=== PATIENT | female | born 1940 | race Two or more races ===

== ENCOUNTER 2024-08-31 14:15 | Inpatient (IN) | payer MEDICARE, MEDICAID, SELFPAY ==
[2024-08-31] VITALS (8 sets, daily range): BP systolic 105–180; BP diastolic 53–82; PULSE 91–109; RESP 16–20; TEMP 36.1–37.6; O2SAT 96–100
--- NOTE | 2024-08-31 15:00 | XR_ITS ---
Examination: CT abdomen with intravenous contrast CT pelvis with intravenous contrast 2-D coronal reconstructions 2-D sagittal reconstructions Date and time of exam:August 31, 2024 1802 hours INDICATIONS: Onset abdominal pain today. CTDI: vol (mGy) 5.72 DLP: (mGycm) 3001 Technique: Multiple axial sections of the abdomen and pelvis have been obtained. 64 slice high-resolution scanner used. 3 mm axial sections have been obtained, post intravenous injection 60 cc [id number] 2-D sagittal, coronal reconstructions obtained. Low dose protocols were performed. One or more of the following dose reduction techniques were used; automated exposure control, adjustment of the mA and/or KV according to patient size, use of iterative reconstruction technique. Findings: Liver irregular in contour, 14 mm posterior right lobe liver lesion 12 mm medial right lobe liver lesion Spleen is not enlarged Cholelithiasis Gastric mucosa axial image 92, in the antrum is thickened Common bile duct is enlarged 8 mm Pancreatic duct is mildly enlarged 3 mm No pancreatic mass Heavy abdominal aortic calcification Pericecal inflammatory change Fluid-filled inflamed appendix retrocecal, sagittal images 148 through 128 with small appendicolith No pericecal abscess Small bowel ileus Atrophic uterus No adnexal mass Bladder intact Severe osteopenia IMPRESSION: Primary hepatocellular disease, focal liver lesions, recommend MRI abdomen liver follow up pre and postcontrast to exclude hepatic metastases Antral gastritis Cholelithiasis, enlarged common bile duct 8 mm, recommend hepatobiliary sonography follow-up Acute appendicitis, appendix retrocecal with pericecal inflammatory change but no pelvic abscess
--- NOTE | 2024-08-31 15:01 | PD.EDRME ---
Rapid Medical Screening Exam RME Arrival date/time: 08/31/24 14:15 84-year-old female presents to the emergency department today for complaints of abdominal pain Chief Complaint: Abdominal Pain Vital signs: Vital Signs Temperature 99.7 F 08/31/24 14:41 Pulse Rate 109 H 08/31/24 14:41 Respiratory Rate 18 08/31/24 14:41 Blood Pressure 105/53 L 08/31/24 14:41 Pulse Oximetry (%) 96 08/31/24 14:41 Oxygen Delivery Method Room Air 08/31/24 14:41
[2024-08-31] MEDS: ONDANSETRON ODT 4 MG TABRAP PO (15:04)
[2024-08-31 15:40] LABS: Basophils # (Auto) 0.0 Thou/mm3 (0.0-0.2); Basophils % (Auto) 0 % (0-2.5); Eosinophils # (Auto) 0.0 Thou/mm3 (0.0-0.5); Eosinophils % (Auto) 0 % (0-10); Hematocrit 36.2 % (36.0-46.0); Hemoglobin 12.6 g/dL (12.0-16.0); Immature Granulocytes Auto 0.03 Thou/mm3 (0.00-0.00); Lymphocytes # (Auto) 0.6 Thou/mm3 (1.0-4.8); Lymphocytes % (Auto) 7 % (10-50); Mean Corpuscular HGB Conc 34.8 g/dl (31.0-37.0); Mean Corpuscular Hemoglobin 28.9 pg (25.0-35.0); Mean Corpuscular Volume 83 fL (80-100); Monocytes # (Auto) 0.6 Thou/mm3 (0.0-0.8); Monocytes % (Auto) 7 % (0-12); Neutrophils # (Auto) 7.6 Thou/mm3 (1.8-7.7); Neutrophils % (Auto) 86 % (37-80); Nucleated Red Blood Cell # 0.00 Thou/mm3 (0.00-0.00); Nucleated Red Blood Cell % 0 /100 WBC (0); Platelet Count 244 Thou/mm3 (140-440); RDW Standard Deviation 42.4 fL (36.4-46.3); Red Blood Count 4.36 Miln/mm3 (4.00-5.20); White Blood Count 8.8 Thou/mm3 (3.6-11.0)
[2024-08-31 16:26] LABS: Alanine Aminotransferase 9 U/L (10-49); Albumin, Serum 4.5 gm/dL (3.4-4.8); Albumin/Globulin Ratio 1.7 (1.2-2.2); Alkaline Phosphatase 64 U/L (46-116); Anion Gap 16 (7-16); Aspartate Amino Transferase 14 U/L (0-34); BUN/Creatinine Ratio 24 Ratio (12-20); Bilirubin,Total 1.4 mg/dL (0.3-1.2); Blood Urea Nitrogen 24 mg/dL (9-23); Calcium 9.8 mg/dL (8.3-10.6); Calcium (Corrected) 9.8 mg/dL (8.5-10.1); Carbon Dioxide 22.9 mMol/L (20.0-31.0); Chloride 96 mMol/L (98-107); Creatinine (Component) 1.0 mg/dL (0.6-1.3); Globulin 2.7 gm/dL (2.3-3.5); Glucose 288 mg/dL (74-106); Lipase 27 U/L (12-53); Osmolality,Calculated 285 (275-295); Potassium 4.0 mMol/L (3.4-5.1); Sodium 135 mMol/L (136-145); Total Protein 7.2 gm/dL (5.7-8.2); eGFR 55 See Note
[2024-08-31 19:31] LABS: Band Neutrophils (Manual) 14 % (0-6); Lymphocytes (Manual) 11 % (20-44); Monocytes (Manual) 6 % (2-9); Neutrophils (Manual) 69 % (50-70)
[2024-08-31 19:32] LABS: Burr Cells Few; Tear Drop Cells Few
[2024-08-31 19:58] LABS: Collection Type, Urine Clean Catch
[2024-08-31 20:03] LABS: Bilirubin,Urine Negative (Negative); Blood,Urine 1+ (Negative); Clarity,Urine Clear (Clear/Hazy); Color,Urine Yellow (Lt Yel-Yel); Culture Indicated,Urine Not Indicated; Glucose, Urine Negative (Negative); Hyaline Casts,Urine < 1 /hpf (0-1); Ketones,Urine Trace (Negative); Leukocyte Esterase,Urine Negative (Negative); Nitrite,Urine Negative (Negative); PH,Urine 6.5 (5.0-7.0); Protein,Urine 1+ (Neg - Trace); RBC,Urine 18 /hpf (0-3); Specific Gravity,Urine 1.034 (1.001-1.035); Squamous Epithelial Cell,Urine < 1 /hpf (0-5); Urobilinogen,Urine Negative mg/dL (0.0-1.0); WBC,Urine 3 /hpf (0-5)
--- NOTE | 2024-08-31 20:53 | PD.EDABDPN ---
ED Abdominal Pain RME/HPI General Chief Complaint: Abdominal Pain Stated complaint: SEVERE RLQ ABD PAIN. STARTED 2 HRS AGO Time seen by provider: 08/31/24 19:37 Arrival date/time: 08/31/24 14:15 Source: patient and family Limitations: language barrier and other (Dementia) RME / HPI RME / HPI narrative: At the time of my exam, the history is hard to obtain. Patient was not able to answer any questions and was in the ER alone. Her abdomen is tender. She has no masses or guarding. Family members were called and they were return to the ER. A male arrived and states that this is her mother and that she lives with him. He states that she has had right lower quadrant pain since 2 PM today. She has had 2-3 episodes of nausea and vomiting. No diarrhea. She has a history of dementia, diabetes, and hypertension. She is allergic to penicillin. Related Data Home Medications ?Medication ?Instructions ?Recorded ?Confirmed amlodipine 08/31/24 aspirin 81 mg tablet,delayed 81 mg PO QDAY 08/31/24 08/31/24 release (Enteric Coated Aspirin) losartan 08/31/24 metformin 850 mg tablet 850 mg PO QDAY 08/31/24 08/31/24 Allergies Allergy/AdvReac Type Severity Reaction Status Date / Time Penicillins Allergy Verified 08/31/24 21:27 Review of Systems Review of Systems Systems Reviewed: All systems reviewed, normal except as documented ED Exam General Limitations: Present language barrier and other (Dementia) General appearance: Present alert and in distress Head Head exam: Present atraumatic Eye Eye exam: Present normal appearance, PERRL and EOMI ENT ENT exam: Present normal exam, normal oropharynx and mucous membranes moist Neck Neck exam: Present normal inspection, full ROM and trachea midline Chest Chest inspection: Present normal inspection and symmetric chest wall rise Respiratory Respiratory exam: Present normal lung sounds bilaterally Cardiovascular Cardiovascular exam: Present regular rate, normal rhythm and normal heart sounds Abdominal Exam Abdominal exam: Present soft, tenderness and normal bowel sounds; Absent rebound or rigidity Extremities Exam Extremities exam: Present normal inspection and full ROM Back Exam Back exam: Present normal inspection and full ROM Neurological Exam Neurological exam: Present alert, oriented X3 and CN II-XII intact Psychiatric Psychiatric exam: Present normal affect and normal mood Skin Skin exam: Present warm, dry, intact and normal color Course Course Course Narrative: Dr Castro aldana and the case was discussed. Will admit to medicine and he will follow in the morning. Quality Measures none Orders Category Date Time Status COVID-19 Screening Questionnaire NOW Care 08/31/24 21:[address] Screening NOW Care 08/31/24 15:00 Active Consent [Obtain Written Consent For:] .NOW Care 08/31/24 21:34 Completed Decision to Admit X1 Care 08/31/24 21:01 Completed EKG (ED ONLY) *Do not use* NOW Care 08/31/24 21:08 Completed Weeks [Urinary Catheter] QS Care 08/31/24 19:40 Active Insert IV NOW Care 08/31/24 15:[address] abdomen pelvis w con Stat Exams 08/31/24 15:00 Completed EKG (ED Only) Stat Exams 08/31/24 21:08 Draft XR chest 1V portable Stat Exams 08/31/24 21:12 Completed CBC Stat Lab 08/31/24 15:22 Completed Comprehensive Metabolic Panel Stat Lab 08/31/24 15:22 Completed Lactic Acid [Lactate (Lactic Acid)] Stat Lab 08/31/24 20:43 Results Lipase Stat Lab 08/31/24 15:22 Completed Partial Thromboplastin Time Stat Lab 08/31/24 15:22 Completed Procalcitonin Stat Lab 08/31/24 20:43 Completed UA, C/S IF [Urinalysis, C/S if Indicated] Stat Lab 08/31/24 19:40 Completed Bupivacaine Mpf 0.5% [Sensorcaine-Mpf Inj 0.5%] Med 08/31/24 21:36 Discontinued 30 ml .ROUTE .STK-MED ONE CIPROFLOXACIN/D5w 400 MG IVPB [Cipro Ivpb] Med 08/31/24 20:57 Discontinued 400 mg in 200 ml IV X1 Ondansetron Odt [Zofran Odt] Med 08/31/24 15:00 Discontinued 4 mg PO X1 ONE Propofol Inj [Diprivan Inj] Med 08/31/24 21:21 Discontinued 200 mg IV .STK-MED ONE Sugammadex Inj [Bridion Inj] Med 08/31/24 21:22 Discontinued 200 mg .ROUTE .STK-MED ONE fentaNYL INJ [Sublimaze Inj] Med 08/31/24 21:21 Discontinued 100 mcg .ROUTE .STK-MED ONE metroNIDAZOLE/NS 500 MG IVPB [Flagyl 500 mg IV] Med 08/31/24 20:57 Discontinued 500 mg in 100 ml IV Q8HR Vital Signs Vital signs: Vital Signs Temperature 99.7 F 08/31/24 14:41 Pulse Rate 109 H 08/31/24 14:41 Respiratory Rate 18 08/31/24 14:41 Blood Pressure 105/53 L 08/31/24 14:41 Pulse Oximetry (%) 96 08/31/24 14:41 Oxygen Delivery Method Room Air 08/31/24 14:41 Abdominal Pain MDM MDM Narrative MDM Narrative:: Patient is a 84-year-old female who was alone at the time of my initial encounter with her. She had a diffuse abdomen tenderness. Reviewed CT findings with attending ER physician, Dr. CONCEPCION. There is concerns for acute appendicitis. Gallstones were also noted. Dr. Erazo was paged and consulted, he stated he would like the patient admitted to the hospital and he will see her tomorrow morning. Case discussed with our nightshift hospitalist, hospitalist will like ultrasound performed prior to considering admission. Ultrasound was ordered. After this, nursing staff for me that the patient was being prepped for the OR. Patient data External records reviewed:: None Clinical information provided by:: patient and family Social determinants that could affect healthcare access:: mental health Patient has the following chronic illnesses:: Dementia, hypertension, diabetes How is presenting disease/condition affected by chronic disease/condition?: uneffected by Evaluation data The following diagnostics were reviewed and interpreted by me:: lab results and radiology exam(s) Lab and/or radiology exams considered but not ordered:: Patient has no leukocytosis, H&H are stable. Glucose is 288 her AST is 14, ALT is 9 alk phos 64. total bili is 1.4 Lipase 27. Lactic acid 6.3. UA shows 18 erythrocytes, no significant leukocytes. Interpretation Summary: Findings concerning for acute appendicitis. Medications / Prescriptions Medications or Prescriptions considered but not ordered:: n/a Medication administrations:: Medication Administration History Acetaminophen (Acetaminophen 325 Mg Tablet) 650 mg PO Q6H PRN PRN Reason: Fever >100.4 Stop: 09/30/24 21:45 Hydrocodone Bitart/Acetaminophen (Hydrocodone/Apap 5/325 Tablet) 1 tab PO Q4HR PRN PRN Reason: PAIN SCALE 4-6 (Moderate Stop: 09/05/24 21:45 Dextrose (Dextrose 50%-Water Inj 50 Ml Syringe) 25 ml IV Q15MIN PRN PRN Reason: BG 50-70 responsive npo pt Stop: 09/30/24 21:45 Dextrose (Dextrose 50%-Water Inj 50 Ml Syringe) 50 ml IV Q15MIN PRN PRN Reason: BG <50 OR BG <70 & pt unresponsive Stop: 09/30/24 21:45 Fentanyl Citrate (Fentanyl Cit Inj 50 Mcg/Ml Amp 2ml) 25 mcg IVP Q5M PRN PRN Reason: PAIN SCALE 1-3 (mild Stop: 08/31/24 23:47 Glucagon (Glucagon Inj 1 Mg Vial) 1 mg IM Q15MIN PRN PRN Reason: BG <70, and no IV access Hydromorphone HCl (Hydromorphone Inj 2 Mg/Ml Vial) 0.2 mg IVP Q5M PRN PRN Reason: PAIN 1-6 (mild-mod Stop: 08/31/24 23:47 Piperacillin Sod/Tazobactam (Sod 4.5 gm/ Sodium Chloride) 100 mls @ 200 mls/hr IV Q8HR ANDREINA Stop: 09/07/24 21:59 Sodium Chloride (Ns) 1,000 mls @ 75 mls/hr IV .[id number] [facility] Stop: 09/01/24 12:04 Insulin Human Lispro (Insulin Lispro (Admelog) 1 Unit/0.01 Ml Unit) 0 unit SC Q6HR ANDREINA; Protocol Stop: 10/01/24 00:00 Morphine Sulfate (Morphine Sulf Inj 10 Mg/Ml Vial) 3 mg IVP Q5M PRN PRN Reason: PAIN SCALE 4-6 (Moderate Stop: 08/31/24 23:47 Ondansetron HCl (Ondansetron Inj 2 Mg/Ml Inj 2 Ml) 4 mg IVP Q6H PRN; Protocol PRN Reason: NAUSEA OR VOMITING Stop: 09/30/24 21:45 Discontinued Medications Bupivacaine HCl (Bupivacaine Mpf 0.5% 30 Ml Vial) Confirm Administered Dose 30 ml .ROUTE .STK-MED ONE Stop: 08/31/24 21:37 Dexamethasone Sodium Phosphate (Dexamethasone Sod Phos Inj 10 Mg/Ml Vial) Confirm Administered Dose 10 mg .ROUTE .STK-MED ONE Stop: 08/31/24 22:38 Fentanyl Citrate (Fentanyl Cit Inj 50 Mcg/Ml Amp 2ml) Confirm Administered Dose 100 mcg .ROUTE .STK-MED ONE Stop: 08/31/24 21:22 Gentamicin Sulfate (Gentamicin Inj 40 Mg/Ml Vial 2 Ml) Confirm Administered Dose 160 mg .ROUTE .STK-MED ONE Stop: 08/31/24 22:33 Ciprofloxacin/Dextrose (Cipro Ivpb) 400 mg in 200 mls @ 200 mls/hr IV X1 ONE Stop: 08/31/24 21:56 Last Admin: 08/31/24 21:48 Dose: 200 mls/hr Documented By: CVL Metronidazole (Flagyl 500 Mg Iv) 500 mg in 100 mls @ 200 mls/hr IV Q8HR ANDREINA Stop: 09/07/24 20:56 Last Infusion: 08/31/24 21:34 Dose: Infused Documented By: Admin: 08/31/24 21:03 Dose: 200 mls/hr Documented By: CVL Metoprolol Tartrate (Metoprolol Tartrate Inj 1 Mg/Ml Amp 5 Ml) Confirm Administered Dose 5 mg .ROUTE .STK-MED ONE Stop: 08/31/24 22:38 Ondansetron HCl (Ondansetron Odt 4 Mg Tabrap) 4 mg PO X1 ONE; Protocol Stop: 08/31/24 15:01 Last Admin: 08/31/24 15:04 Dose: 4 mg Documented By: DEEPIKA Ondansetron HCl (Ondansetron Inj 2 Mg/Ml Inj 2 Ml) 4 mg IVP X1 ONE Stop: 08/31/24 21:47 Ondansetron HCl (Ondansetron Inj 2 Mg/Ml Inj 2 Ml) Confirm Administered Dose 4 mg .ROUTE .STK-MED ONE Stop: 08/31/24 22:38 Phenylephrine HCl (Phenylephrine Inj In Ns 100 Mcg/Ml 10 Ml Syringe) Confirm Administered Dose 1,000 mcg .ROUTE .STK-MED ONE Stop: 08/31/24 22:17 Propofol (Propofol Inj 10 Mg/Ml Vial 20 Ml) Confirm Administered Dose 200 mg IV .STK-MED ONE Stop: 08/31/24 21:22 Rocuronium [place] (Rocuronium Inj 10 Mg/Ml Vial 10 Ml) Confirm Administered Dose 100 mg .ROUTE .STK-MED ONE Stop: 08/31/24 22:38 Sugammadex Sodium (Sugammadex Inj 100 Mg/Ml 2ml Vial) Confirm Administered Dose 200 mg .ROUTE .K-MED ONE Stop: 08/31/24 21:23 See above Consultations Consultation(s) initiated? (list below): Yes Consultation #1 (Physician, Specialty, Details): Dr Erazo with general surgery, will like the patient admitted to medicine. He will follow. Diagnosis Differential diagnosis abdominal pain: abdominal pain, acute appendicitis, constipation, diverticulitis and gastroenteritis Most likely diagnosis given after review of the tests above:: n/a Admission Indicated Admission indicated?: indicated Admission Request Was there a request for admission?: Yes Admission Attestation Admission request attestation: Discussed case with [] from Hospitalist service regarding admission. Discussed patients ED course, exam findings, labs, and radiology results. The Hospitalist [agrees,declines] to accept the patient for admission. Disposition Plan Disposition Plan: Admit Discharge Plan Plan Patient Disposition: Admit Acute Care w/in Hospital Discharge Disposition comment: [facility] Patient condition on transfer: Stable Problem List Clinical Impression: Unspecified acute appendicitis
[2024-08-31 20:54] LABS: Lactate (Lactic Acid) 6.3 mMol/L (0.4-2.0)
[2024-08-31] MEDS: metroNIDAZOLE/NS 500 MG IVPB 500 MG/100 ML BAG 200 MG IV (21:03)
--- NOTE | 2024-08-31 21:08 | EKG_ITS ---
[facility] Test Date: 2024-08-31 Pat Name: GEO TOVARODepartment: Room: - Gender: Female [employer] Strategy Associate: : 1940 Requested By: Ching Prakash Order Number: [id number] Reading MD: Ching Prakash Measurements Intervals [place] Rate: 99 P: 69 SD: 149 QRS: 0 QRSD: 79 T: 75 QT: 321 QTc: 413 Interpretive Statements SINUS RHYTHM No previous ECG available for comparison /store/S0/[id number]/ecg/[id number].pdf
--- NOTE | 2024-08-31 21:12 | XR_ITS ---
Examination: AP chest single view TECHNIQUE: AP portable semiupright chest single view Date and time: August 31, [id number] hours Comparison January 27, 2023 INDICATIONS: Preop FINDINGS: Normal heart size No pneumonia or pulmonary edema Prominent osteopenia IMPRESSION: No active disease
[2024-08-31 21:19] LABS: Procalcitonin 15.51 ng/ml (0.0-0.49)
[2024-08-31 21:30] LABS: Partial Thromboplastin Time 30.1 Seconds (22.0-36.0)
[2024-08-31] MEDS: CIPROFLOXACIN/D5w 400 MG IVPB 400 MG/200 ML BAG 200 MG IV (21:48)
--- NOTE | 2024-08-31 21:57 | ESHP_ITS ---
<Statement entered by Hans Glass MD - 09/01/24 07:10> I Hans Glass MD reviewed the note and agree with the resident's assessment & plan with exceptions as below. I have personally reviewed labs, imaging, home meds/prior records, examined the patient, formulated and discussed management plan with the IM team. An 84-year-old female with history of DM, HTN, dementia presented with abdominal pain with significant guarding and rigidity noted to have acute abdomen with lactic acidosis. CT scan did reveal acute appendicitis along with possible multiple liver lesions. General surgery is consulted and patient has been taken to the OR. Will empirically treat with Zosyn and vancomycin along with continuation of IV fluid resuscitation. Will evaluate postoperatively for etiology of liver lesions. Documentation for date of: 08/31/24 HPI History of Present Illness Chief complaint: Abd pain, N/V History of present illness: 84-year-old female with past medical history of hypertension, DM2, and dementia was admitted to the hospital 08/31/2024 after come to the ED with complaints of abdominal pain as well as nausea and vomiting. Patient's son was at bedside and makes decisions for the patient as patient is unable to provide much history or make decisions for herself given her dementia. Per patient's son today around noon time she started having a lot of abdominal pain on the right lower quadrant and it was accompanied with nausea and vomiting as well. At baseline patient is able to walk short distances, but she does need assistance with most daily activities. Otherwise he stated that he did not notice any blood in the stools or any diarrhea patient has not had any fevers, chills, shortness of breath, chest pain, or recent falls. ED course: Initially came in mildly hypotensive and tachycardic, but afebrile. Initial labs were elevated for lactic acidosis, hyperbilirubinemia, and elevated procalcitonin. Initial imaging included abdomen/pelvis CT which showed acute appendicitis as well as cholelithiasis with a CBD of 8 mm as well as pancreatic diet mildly enlarged at 3 mm as well with some liver lesions. Chest x-ray is unremarkable and EKG was sinus rhythm with no ST changes. ED provider spoke with general surgery who is going to take the patient to the OR tonight. PMH: hypertension, DM2, and dementia Social Hx: No drugs, smoking, or alcohol Allergies: Penicillins Surgical Hx: None per patient's Review of Systems Review of Systems ROS Unobtainable: unobtainable due to mental status Past Medical History Past Medical History Comments PMH COMMENT: PMH: hypertension, DM2, and dementia Social Hx: No drugs, smoking, or alcohol Allergies: Penicillins Surgical Hx: None per patient's Exam Vital Signs Temp Pulse Resp BP Pulse Ox O2 Del Method 99.1 F 96 16 157/68 H 98 Room Air 08/31/24 19:43 08/31/24 21:49 08/31/24 21:49 08/31/24 21:49 08/31/24 21:49 08/31/24 19:43 Narrative Exam General: A/O x1 (only to person), no acute distress Eyes: PERRL, EOMI. Anicteric, vision grossly intact. Ears: No ear pain, no ear discharge, Hearing mildly impaired. Nose: No nasal discharge. Mouth/Throat: Moist mucous membranes, no redness, no lesions. Neck: Neck supple, non-tender, no cervical lymphadenopathy. Lungs: Clear HENOK to auscultation and percussion, No accessory muscle use. Cardio: Normal S1/S2, regular rhythm, no murmurs, no JVD Abdomen: Soft,but mildly distended and significant tenderness with light palpation, no palpable masses, peristalsis present. 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 Skin: No rashes, no lesions, warm to touch. Neuro: No focal neurological deficits appreciated. Moving all extremities and able to follow commands. Psych: Cooperative, appropriate mood and effect. Results: Labs 08/31/24 15:22 08/31/24 15:22 Labs: Short CBC 08/31/24 Range/Units 15:22 WBC 8.8 (3.6-11.0) Thou/mm3 Hgb 12.6 (12.0-16.0) g/dL Hct 36.2 (36.0-46.0) % Plt Count 244 (140-440) Thou/mm3 BMP 08/31/24 15:22 Sodium 135 L Potassium 4.0 Chloride 96 L Carbon Dioxide 22.9 BUN 24 H Creatinine 1.0 Glucose 288 H Calcium 9.8 Liver Function 06/24/25 Range/Units 15:22 Total Bilirubin 1.4 H (0.3-1.2) mg/dL AST 14 (0-34) U/L ALT 9 L (10-49) U/L Alkaline Phosphatase 64 (46-116) U/L Albumin 4.5 (3.4-4.8) gm/dL Urine 08/31/24 Range/Units 19:40 Urine Color Yellow (Lt Yel-Yel) Urine Clarity Clear (Clear/Hazy) Urine pH 6.5 (5.0-7.0) Ur Specific Dorsey 1.034 (1.001-1.035) Urine Protein 1+ A (Neg - Trace) Urine Glucose (UA) Negative (Negative) Quality Measures Quality Measures VTE prophylaxis Advance care planning discussed with:: patient and child Medications Home Medications and Allergies Home Medications ?Medication ?Instructions ?Recorded ?Confirmed ?Type amlodipine 08/31/24 History aspirin 81 mg tablet,delayed 81 mg PO QDAY 08/31/24 History release (Enteric Coated Aspirin) losartan 08/31/24 History metformin 850 mg tablet 850 mg PO QDAY 08/31/2408/09 History Allergies Allergy/AdvReac Type Severity Reaction Status Date / Time Penicillins Allergy Verified 08/31/24 21:27 Visit Medications Acetaminophen (Acetaminophen 325 Mg Tablet) 650 mg PO Q6H PRN PRN Reason: Fever >100.4 Stop: 09/30/24 21:45 Hydrocodone Bitart/Acetaminophen (Hydrocodone/Apap 5/325 Tablet) 1 tab PO Q4HR PRN PRN Reason: PAIN SCALE 4-6 (Moderate Stop: 09/05/24 21:45 Dextrose (Dextrose 50%-Water Inj 50 Ml Syringe) 25 ml IV Q15MIN PRN PRN Reason: BG 50-70 responsive npo pt Stop: 09/30/24 21:45 Dextrose (Dextrose 50%-Water Inj 50 Ml Syringe) 50 ml IV Q15MIN PRN PRN Reason: BG <50 OR BG <70 & pt unresponsive Stop: 09/30/24 21:45 Fentanyl Citrate (Fentanyl Cit Inj 50 Mcg/Ml Amp 2ml) 25 mcg IVP Q5M PRN PRN Reason: PAIN SCALE 1-3 (mild Stop: 08/31/24 23:47 Glucagon (Glucagon Inj 1 Mg Vial) 1 mg IM Q15MIN PRN PRN Reason: BG <70, and no IV access Hydromorphone HCl (Hydromorphone Inj 2 Mg/Ml Vial) 0.2 mg IVP Q5M PRN PRN Reason: PAIN 1-6 (mild-mod Stop: 08/31/24 23:47 Metronidazole (Flagyl 500 Mg Iv) 500 mg in 100 mls @ 200 mls/hr IV Q8HR ANDREINA Stop: 09/07/24 20:56 Last Infusion: 08/31/24 21:34 Dose: Infused Piperacillin Sod/Tazobactam (Sod 4.5 gm/ Sodium Chloride) 100 mls @ 200 mls/hr IV Q8HR [facility] Stop: 09/07/24 21:59 Insulin Human Lispro (Insulin Lispro (Admelog) 1 Unit/0.01 Ml Unit) 0 unit SC Q6HR ANDREINA; Protocol Stop: 10/01/24 00:00 Morphine Sulfate (Morphine Sulf Inj 10 Mg/Ml Vial) 3 mg IVP Q5M PRN PRN Reason: PAIN SCALE 4-6 (Moderate Stop: 08/31/24 23:47 Ondansetron HCl (Ondansetron Inj 2 Mg/Ml Inj 2 Ml) 4 mg IVP Q6H PRN; Protocol PRN Reason: NAUSEA OR VOMITING Stop: 09/30/24 21:45 Discontinued Medications Ciprofloxacin/Dextrose (Cipro Ivpb) 400 mg in 200 mls @ 200 mls/hr IV X1 ONE Stop: 08/31/24 21:56 Last Admin: 08/31/24 21:48 Dose: 200 mls/hr Ondansetron HCl (Ondansetron Odt 4 Mg Tabrap) 4 mg PO X1 ONE; Protocol Stop: 08/31/24 15:01 Last Admin: 08/31/24 15:04 Dose: 4 mg Ondansetron HCl (Ondansetron Inj 2 Mg/Ml Inj 2 Ml) 4 mg IVP X1 ONE Stop: 08/31/24 21:47 Assessment & Plan Plan 84-year-old female with past medical history of hypertension, DM2, and dementia was admitted to the hospital 08/31/2024 for acute appendicitis #Acute appendicitis #Lactic acidosis Patient came in with abdominal pain as well as nausea and vomiting which started around noontime today. Abdomen/pelvis CT showed acute appendicitis. Lactic acid was 6.3 on admission ED provider spoke with general surgeon who will take patient to the OR tonight. Plan: N.p.o. in the setting of surgery Flagyl and ciprofloxacin as patient has a penicillin allergy Will trend lactic acid General Surgery consulted, appreciate commendations #Hyperbilirubinemia #Cholelithiasis On lab work patient was noted to have T.bilirubin of 1.4. Abdomen/pelvis CT also showed cholelithiasis as well as enlarged common bile duct at 8 mm and pancreatic duct mildly enlarged at 3 mm. No liver enzyme elevations DDx includes choledocholithiasis Plan: Will continue to monitor T bilirubin Consider gallbladder ultrasound after surgery. Chronic diseases: #Hx of DM2 #Hx of hypertension #Hx of dementia ISS and hypoglycemia protocol ordered A1c and lipid panel for morning labs Disposition: Patient admitted to med surg for Acute appendicitis. Diet: NPO GI prophylaxis: not indicated DVT prophylaxis: SCDs Code: DNR Case disclosed with Attending Dr. Quan Velázquez PGY1 Disclaimer: Even though this this note was dictated by speech recognition and even though it was carefully revised there may still be minor errors in multigrapher due to voice recognition software.
--- NOTE | 2024-08-31 22:12 | PD.SURCONS ---
HPI Consult details Consult date: 08/31/24 Reason for consultation narrative: Right lower quadrant abdominal pain with nausea and vomiting History of present illness: Patient is 84-year-old female who is poor historian. Patient's history is obtained from patient's son. She is 84-year-old female with history of hypertension diabetes was brought into the emergency department for acute onset of abdominal pain that started last night. The pain was initially intermittent. Since earlier today her pain has become persistent, progressively worse and localized over right lower quadrant. She has had nausea and vomiting, but denies fever, chills, diarrhea, constipation or dysuria. She denies having similar symptoms in the past. Review of Systems Constitutional Constitutional: Denies chills and Denies fever(s) Cardiovascular Cardiovascular: Denies chest pain Respiratory Respiratory: Denies cough Gastrointestinal Gastrointestinal: Reports abdominal pain, Reports nausea and Reports vomiting Genitourinary Genitourinary: Denies difficulty voiding Hematologic/Lymphatic Hematologic/Lymphatic: Denies easy bleeding and Denies easy bruising Past Medical History Surgical History OTHER SURGICAL HX: No surgeries in the past according to patient's son Social History SMOKING STATUS: Never smoker SUBSTANCE USE: does not use ALCOHOL: Never Meds Home Medications and Allergies Home Medications ?Medication ?Instructions ?Recorded ?Confirmed ?Type amlodipine 08/31/24 History aspirin 81 mg tablet,delayed 81 mg PO QDAY 08/31/24 08/31/24 History release (Enteric Coated Aspirin) losartan 08/31/24 History metformin 850 mg tablet 850 mg PO QDAY 08/31/24 08/31/24 History Allergies Allergy/AdvReac Type Severity Reaction Status Date / Time Penicillins Allergy Verified 08/31/24 21:27 Exam Vital Signs Temp Pulse Resp BP Pulse Ox O2 Del Method 99.1 F 96 16 157/68 H 98 Room Air 08/31/24 19:43 08/31/24 21:49 08/31/24 21:49 08/31/24 21:49 08/31/24 21:49 08/31/24 19:43 Constitutional Constitutional: no acute distress Routine HEENT Exam ENT: Present mucous membranes dry Routine Abdominal Exam Comments: Abdomen is soft and nondistended. She has tenderness to palpation over right lower quadrant with guarding, no rebound tenderness or peritonitis at this time Results Results: Laboratory Laboratory results: results reviewed Results: Imaging CT scan - abdomen: report reviewed and image reviewed CT scan - pelvis: report reviewed and image reviewed Assessment & Plan Problem List (1) Unspecified acute appendicitis: Status: Acute Plan Will take patient to the operating room for laparoscopic possible open appendectomy. Risks include but not limited to infection, bleeding, injury to bowel, surround neurovascular structures, abdominal sepsis and or abdominal abscess, need for further procedure and or operation discussed with the patient and her son via bilingual interpreter. Benefits and alternatives explained to them, all their questions answered, they agreed and consented to proceed with the operation. (1) Unspecified acute appendicitis Qualifiers: Acute appendicitis type: unspecified acute appendicitis type Qualified Code(s): K35.80 - Unspecified acute appendicitis
--- NOTE | 2024-08-31 22:16 | PD.SUROPNT ---
Date of Procedure 08/31/24 Pre Op Diagnosis Acute appendicitis Post Op Diagnosis Perforated and gangrenous appendicitis with peritonitis Procedure Laparoscopic appendectomy with abdominal washout Findings Gangrenous appendix with perforation and generalized peritonitis Procedure Description Patient was brought into the operating room in supine position. After administration of general endotracheal anesthesia, abdomen was prepped and draped in standard surgical manner. A Veress needle was inserted through the umbilicus and pneumoperitoneum was obtained up to 15 mmHg. The Veress needle was removed and a 5 mm umbilical incision was made. A 5 mm trocar was placed and laparoscopic camera was inserted. Under direct visualization a laparoscopic camera a 5 mm trocar placed in suprapubic region and a 10 mm trocar placed in left lower quadrant. The abdomen was inspected, there was significant amount of inflammatory reaction of the right lower quadrant with some purulent fluid and fibrinous exudates consistent with peritonitis. The right lower quadrant pelvis washed and appearing fluid was suctioned. The appendix was identified and noted to be gangrenous with perforation and some appendicoliths. Appendicoliths removed. A window was created between the appendix and mesoappendix and the appendix was divided near the appendix and cecal junction with blue Endo SAW stapling device. The mesoappendix was divided with yanes Endo SAW stapling device. The appendix was placed inside an Endo Catch and removed from the abdomen utilizing left lower quadrant trocar site. Abdomen and pelvis copiously and thoroughly washed and irrigated, all the fluids were suctioned and the suctioned fluid returned clear. Hemostasis was adequate and satisfactory, staple lines were intact without bleeding or any leakage. Left lower quadrant trocar sites fascial defect was closed with 0 Vicryl. Instruments and trocars removed, pneumoperitoneum was evacuated and the incisions closed with 4-0 Monocryl subcuticular fashion. Instruments, needles and sponge counts were reported to be correct ??2. Patient tolerated the procedure well, was extubated, breathing spontaneously and without difficulty and was transferred to postanesthesia care in stable condition. Anesthesia GETA and local Pathology / specimen Other (Appendix) Estimated Blood Loss 10 Condition Stable Disposition PACU Surgeon Mumtaz Erazo MD Surgical Staff Operation Date: 08/31/24 22:45 <No data on this case meets the specified criteria>
--- NOTE | 2024-08-31 23:14 | SUR.PHASEI ---
2314: Pt. wakes to name then drifts back to sleep, pt. hypertensive, MD Mcdonough aware, no new orders given, remaining vitals stable, breathing unlabored, no complaint of pain or nausea, x3 dermabond sites to ABD CDI, no active bleed noted, pt. family took pt. belongings and walker home with them, report received from MD Mcdonough and Tia ARIAS.
[2024-08-31] MEDS: SODIUM CHLORIDE 0.9% 1000 ML 1,000 ML 75 ML IV (23:37)
[2024-08-31 23:45] LABS: Reflex Lactate? Y
--- NOTE | 2024-08-31 23:45 | SUR.PHASEI ---
2343:Pt. AAOx4, vitals stable, breathing unlabored, no complaint of pain or nausea, x3 dressing to ABD CDI, no active bleed noted, family aware of pt. transfer to room. Pt. son took her belongings. Gave report to Aneesh ARIAS prior to transfer to room. No complications.
[2024-09-01] VITALS (11 sets, daily range): BP systolic 118–165; BP diastolic 48–77; PULSE 80–97; RESP 16–100; TEMP 36.2–36.6; O2SAT 94–97; BMI 20.8
[2024-09-01] MEDS: INSULIN LISPRO (AdmeLOG) 1 UNIT/0.01 ML UNIT SC ×4 (00:25→16:57)
[2024-09-01 00:37] LABS: Lactic Acid, 3 HR 6.1 mMol/L (0.4-2.0)
[2024-09-01 05:06] LABS: Lactate (Lactic Acid) 4.3 mMol/L (0.4-2.0)
[2024-09-01 05:24] LABS: Basophils # (Auto) 0.1 Thou/mm3 (0.0-0.2); Basophils % (Auto) 1 % (0-2.5); Eosinophils # (Auto) 0.0 Thou/mm3 (0.0-0.5); Eosinophils % (Auto) 0 % (0-10); Hematocrit 37.6 % (36.0-46.0); Hemoglobin 12.7 g/dL (12.0-16.0); Immature Granulocytes Auto 0.03 Thou/mm3 (0.00-0.00); Lymphocytes # (Auto) 0.3 Thou/mm3 (1.0-4.8); Lymphocytes % (Auto) 3 % (10-50); Mean Corpuscular HGB Conc 33.8 g/dl (31.0-37.0); Mean Corpuscular Hemoglobin 28.9 pg (25.0-35.0); Mean Corpuscular Volume 86 fL (80-100); Monocytes # (Auto) 0.5 Thou/mm3 (0.0-0.8); Monocytes % (Auto) 4 % (0-12); Neutrophils # (Auto) 10.5 Thou/mm3 (1.8-7.7); Neutrophils % (Auto) 92 % (37-80); Nucleated Red Blood Cell # 0.00 Thou/mm3 (0.00-0.00); Nucleated Red Blood Cell % 0 /100 WBC (0); Platelet Count 198 Thou/mm3 (140-440); RDW Standard Deviation 43.8 fL (36.4-46.3); Red Blood Count 4.40 Miln/mm3 (4.00-5.20); White Blood Count 11.3 Thou/mm3 (3.6-11.0)
[2024-09-01] MEDS: metroNIDAZOLE/NS 500 MG IVPB 500 MG/100 ML BAG 200 MG IV ×3 (05:25→22:06)
[2024-09-01 05:28] LABS: Glucose Estimated Average 111 mg/dL (80-131); Hemoglobin A1C 5.5 % Hgb (4.8-6.0)
[2024-09-01 05:36] LABS: Alanine Aminotransferase 11 U/L (10-49); Albumin, Serum 4.3 gm/dL (3.4-4.8); Albumin/Globulin Ratio 1.6 (1.2-2.2); Alkaline Phosphatase 47 U/L (46-116); Anion Gap 13 (7-16); Aspartate Amino Transferase 17 U/L (0-34); BUN/Creatinine Ratio 25 Ratio (12-20); Bilirubin,Total 1.1 mg/dL (0.3-1.2); Blood Urea Nitrogen 20 mg/dL (9-23); Calcium 9.9 mg/dL (8.3-10.6); Calcium (Corrected) 9.9 mg/dL (8.5-10.1); Carbon Dioxide 27.4 mMol/L (20.0-31.0); Cardiac Risk Estimate 1.8 RATIO (3.7-5.6); Chloride 98 mMol/L (98-107); Cholesterol 127 mg/dL (132-200); Creatinine (Component) 0.8 mg/dL (0.6-1.3); Estimated Creatinine Clearance 43.6 mL/min (>60); Globulin 2.7 gm/dL (2.3-3.5); Glucose 212 mg/dL (74-106); HDL Cholesterol 72 mg/dL (40-60); LDL Cholesterol,Calculated 43 mg/dL (0-130); Magnesium 1.5 mg/dL (1.6-2.6); Osmolality,Calculated 284 (275-295); Potassium 3.8 mMol/L (3.4-5.1); Sodium 138 mMol/L (136-145); Total Protein 7.0 gm/dL (5.7-8.2); Triglycerides 61 mg/dL (30-150); eGFR > 60 See Note
[2024-09-01 07:59] LABS: Reflex Lactate? Y
[2024-09-01] MEDS: CIPROFLOXACIN/D5w 400 MG IVPB 400 MG/200 ML BAG 200 MG IV ×2 (08:21→20:24)
[2024-09-01 08:24] LABS: Lactic Acid, 3 HR 2.0 mMol/L (0.4-2.0)
[2024-09-01] MEDS: Magnesium Sulfate 4 GM Ivpb 4 GM/50 ML BAG IV (09:46)
--- NOTE | 2024-09-01 15:28 | PD.SURPROG ---
Documentation for date of: 09/01/24 Subjective Subjective Narrative: Patient was seen and examined. She is resting comfortably, complaining of incisional pain. According to the nurse she has been tolerating clear liquids without nausea or vomiting Exam Vital Signs Temp Pulse Resp BP Pulse Ox O2 Del Method O2 Flow Rate 97.2 F 88 18 118/51 L 95 Room Air 2 09/01/24 12:00 09/01/24 12:00 09/01/24 12:00 09/01/24 12:09/01/24 12:09/01/24 12:08/31/24 23:24 Constitutional Constitutional: no acute distress Routine Abdominal Exam Comments: Abdomen is soft and minimally distended. Incisions with dressings clean, dry and intact Assessment & Plan Assessment Additional comments: Postop day #1 status post laparoscopic appendectomy for perforated gangrenous appendicitis with peritonitis Plan Continue IV antibiotics. Will keep patient on liquid diet today and will advance diet tomorrow. DC Weeks catheter tomorrow. Patient will need to increase ambulation PROCEDURES: Procedures Laparoscopic appendectomy with abdominal washout
--- NOTE | 2024-09-01 16:16 | PC.SS ---
Rounding note: patient is postop day one status post laparoscopic appendectomy, will stay in hospital for monitoring.
--- NOTE | 2024-09-01 16:25 | PD.RESPRO ---
Documentation for date of: 09/01/24 Subjective Subjective Interval history: Patient is an overnight admit. Patient was admitted for acute appendicitis and lack of acidosis which has now down trended to 2.0. Patient underwent laparoscopic appendectomy with abdominal washout operative findings include gangrenous appendix with perforation and general peritonitis. Patient seen and examined at bedside this morning patient is a poor historian although denies any pain in the abdomen and appears to be comfortable. Vitals are stable labs are reviewed and within normal limits. Will continue IV antibiotics and general surgery recommendations. Exam Vital Signs Temp Pulse Resp BP Pulse Ox O2 Del Method O2 Flow Rate 97.2 F 88 18 118/51 L 95 Room Air 2 09/01/24 12:00 09/01/24 12:00 09/01/24 12:09/01/24 12:09/01/24 12:09/01/24 12:08/31/24 23:24 Narrative Exam GENERAL: A&Ox3 . Awake, cooperative elderly female, Not in acute distress NEURO: no focal neurological deficits noted HEENT: Atraumatic, Normocephalic. mucous membranes moist. Eyes open, symmetrical, & clear HEART: Normal Heart Sounds LUNGS: Clear to auscultation with no wheezing or crackles. ABDOMEN: soft, non-distended, non-tender, no guarding or rebound tenderness, laporscopic surgical lacy seen, appear clean and non bleeding. SKIN: No Rash or ecchymoses EXTREMITIES: No edema, tenderness, able to move all 4 extremities, pedal pulses palpated Objective Labs 09/01/24 04:51 09/01/24 04:51 Labs: Laboratory Results - last 24 hr 08/31/24 08/31/24 08/31/24 15:22 19:40 20:43 WBC RBC Hgb Hct MCV MCH MCHC RDW Std Deviation Plt Count Neut % (Auto) Lymph % (Auto) [place] % (Auto) Eos % (Auto) Baso % (Auto) Neut # (Auto) Lymph # (Auto) [place] # (Auto) Eos # (Auto) Baso # (Auto) Immature Gran # (Auto) Absolute Nucleated RBC Immature Gran % Neutrophils % (Manual) 69 Monocytes % (Manual) 6 Nucleated RBC % Band Neutrophils 14 H Lymphocytes (Manual) 11 L Tear Drop Cells Few [place] Cells Few APTT 30.1 Sodium 135 L Potassium 4.0 Chloride 96 L Carbon Dioxide 22.9 Anion Gap 16 BUN 24 H Creatinine 1.0 Estim Creat Clear Calc Not Performed. eGFR 55 L BUN/Creatinine Ratio 24 H Glucose [address] Glu mg/dL Hemoglobin A1c Calculated Osmolality 285 Lactic Acid 6.3 H* Calcium 9.8 Corrected Calcium 9.8 Magnesium Total Bilirubin 1.4 H AST 14 ALT 9 L Alkaline Phosphatase 64 Total Protein 7.2 Albumin 4.5 Globulin 2.7 Albumin/Globulin Ratio 1.7 Triglycerides Cholesterol LDL Cholesterol, Calc HDL Cholesterol Cholesterol/HDL Ratio Lipase 27 Procalcitonin 15.51 H Ur Collection Type Clean Catch Urine Color Yellow Urine Clarity Clear Urine pH 6.5 Ur Specific [place] 1.034 Urine Protein 1+ A Urine Glucose (UA) Negative Urine Ketones Trace Urine Blood 1+ A Urine Nitrite Negative Urine Bilirubin Negative Urine Urobilinogen (Auto) Negative Ur Leukocyte Esterase Negative Urine RBC 18 H Urine WBC 3 Ur Squamous Epith Cells < 1 Urine Bacteria None Hyaline Casts < 1 Ur Culture Indicated? Not Indicated 09/01/24 09/01/24 09/01/24 00:17 04:51 07:59 WBC 11.3 H RBC 4.40 Hgb 12.7 Hct 37.6 MCV 86 MCH 28.9 MCHC 33.8 RDW Std Deviation 43.8 Plt Count 198 D Neut % (Auto) 92 H Lymph % (Auto) 3 L [place] % (Auto) 4 Eos % (Auto) 0 Baso % (Auto) 1 Neut # (Auto) 10.5 H Lymph # (Auto) 0.3 L [place] # (Auto) 0.5 Eos # (Auto) 0.0 Baso # (Auto) 0.1 Immature Gran # (Auto) 0.03 H Absolute Nucleated RBC 0.00 Immature Gran % 0 Neutrophils % (Manual) Monocytes % (Manual) Nucleated RBC % 0 Band Neutrophils Lymphocytes (Manual) Tear Drop Cells [place] Cells APTT Sodium 138 Potassium 3.8 Chloride 98 Carbon Dioxide 27.4 Anion Gap 13 BUN 20 Creatinine 0.8 Estim Creat Clear Calc 43.6 L eGFR > 60 BUN/Creatinine Ratio 25 H Glucose [address] Glu mg/dL 111 Hemoglobin A1c 5.5 Calculated Osmolality 284 Lactic Acid 6.1 H* 4.3 H* 2.0 Calcium 9.9 Corrected Calcium 9.9 Magnesium 1.5 L Total Bilirubin 1.1 AST 17 ALT 11 Alkaline Phosphatase 47 D Total Protein 7.0 Albumin 4.3 Globulin 2.7 Albumin/Globulin Ratio 1.6 Triglycerides 61 Cholesterol 127 L LDL Cholesterol, Calc 43 HDL Cholesterol 72 H Cholesterol/HDL Ratio 1.8 L Lipase Procalcitonin Ur Collection Type Urine Color Urine Clarity Urine pH Ur Specific [place] Urine Protein Urine Glucose (UA) Urine Ketones Urine Blood Urine Nitrite Urine Bilirubin Urine Urobilinogen (Auto) Ur Leukocyte Esterase Urine RBC Urine WBC Ur Squamous Epith Cells Urine Bacteria Hyaline Casts Ur Culture Indicated? Quality Measures Quality Measures none Advance care planning discussed with:: other Assessment & Plan Assessment Current Active Medications: Generic Name Dose Route Start Last Admin Trade Name Freq PRN Reason Stop Dose Admin Acetaminophen 650 mg 08/31/24 21:46 Acetaminophen 325 Mg Tablet PO 09/30/24 21:45 Q6H PRN Fever >100.4 Hydrocodone Bitart/Acetaminophen 1 tab 08/31/24 21:46 Hydrocodone/Apap 5/325 Tablet PO 09/05/24 21:45 Q4HR PRN PAIN SCALE 4-6 (Moderate Dextrose 25 ml 08/31/24 21:46 Dextrose 50%-Water Inj 50 Ml Syringe IV 09/30/24 21:45 Q15MIN PRN BG 50-70 responsive npo pt Dextrose 50 ml 08/31/24 21:46 Dextrose 50%-Water Inj 50 Ml Syringe IV 09/30/24 21:45 Q15MIN PRN BG <50 OR BG <70 & pt unresponsive Docusate Sodium 100 mg 09/01/24 09:00 09/01/24 09:46 Docusate Sod 100 Mg Capsule PO 10/01/24 08:59 Not Given BID [facility] Protocol Glucagon 1 mg 08/31/24 21:46 Glucagon Inj 1 Mg Vial IM Q15MIN PRN BG <70, and no IV access Ciprofloxacin/Dextrose 400 mg in 200 mls @ 200 mls/hr 09/01/24 09:00 09/01/24 08:21 Cipro Ivpb IV 09/08/24 08:59 200 mls/hr Q12HR ANDREINA Administration Metronidazole 500 mg in 100 mls @ 200 mls/hr 09/01/24 06:00 09/01/24 14:09 Flagyl 500 Mg Iv IV 09/08/24 05:59 200 mls/hr Q8HR ANDREINA Administration Insulin Human Lispro 0 unit 09/01/24 07:30 09/01/24 11:38 Insulin Lispro (Admelog) 1 Unit/0.01 Ml Unit SC 10/01/24 07:29 2 unit ACHS ANDREINA Administration Protocol Morphine Sulfate 2 mg 08/31/24 23:56 Morphine Sulf Inj 10 Mg/Ml Vial IVP 09/05/24 23:55 Q4HR PRN PAIN SCALE 7-10 (Severe Ondansetron HCl 4 mg 08/31/24 21:46 Ondansetron Inj 2 Mg/Ml Inj 2 Ml IVP 09/30/24 21:45 Q6H PRN NAUSEA OR VOMITING Protocol Plan Ms. Saez is a 84-year-old female with past medical history of hypertension, DM2, and dementia was admitted to the hospital 08/31/2024 for acute appendicitis #Acute appendicitis s/p Laparoscopic appendectomy #Lactic acidosis-resolved Patient came in with abdominal pain as well as nausea and vomiting which started around noontime today. Abdomen/pelvis CT showed acute appendicitis. Lactic acid was 6.3 on admission -> 2.0 On 09/02/24 Patient underwent laparoscopic appendectomy with abdominal washout, other operative findings included gangrenous appendix with perforation and general peritonitis. Plan: -Advance diet to full liquid -Continue Flagyl and ciprofloxacin 08/31- -General Surgery following, appreciate commendations #Hyperbilirubinemia- resolved #Cholelithiasis On admission T.bilirubin of 1.4. Abdomen/pelvis CT also showed cholelithiasis as well as enlarged common bile duct at 8 mm and pancreatic duct mildly enlarged at 3 mm. No liver enzyme elevations DDx includes choledocholithiasis Plan: -Will continue to monitor T bilirubin -Pt will need outpatient follow up #[id number] type 2 diabetes -Patient home medication include metformin 850 mg daily -A1c 5.5 on 09/01/2024, blood glucose on admission is 212 Plan: -Insulin sliding scale ordered -Hypoglycemia protocol with Accu-Cheks -Diabetic diet ordered #Primary hypertension -BP on admission is normotensive, Pt's home medication include Losartan -Will continue to monitor BP, and will resume antihypertesnive when able #Hx of dementia -Pending med rec Disposition: Patient admitted to med surg s/p laparoscopic appendectomy Diet: Clear Liquid GI prophylaxis: not indicated DVT prophylaxis: SCDs Code: DNR Assessment and plan discussed with my attending physician Dr. Duke Glass (PGY-1)- Internal medicine resident Attending Provider Attestation/Addendum I have discussed and was present for the essential components of the history, physical examination, diagnosis, and treatment plan with the resident. I agree with the patient's care as documented by the resident and amended herein by me. Jonathan Wall, DO. Although this document has been carefully reviewed, there may still be some phonetic and other typographical errors. These errors are purely grammatical due to imperfections in the software program and should not be construed in any way to compromise the substance of the patient's medical care during this visit.
[2024-09-02] VITALS (9 sets, daily range): BP systolic 113–164; BP diastolic 59–94; PULSE 79–101; RESP 17–98; TEMP 36.1–36.6; O2SAT 93–97; BMI 13.0
[2024-09-02] MEDS: MORPHINE SULF INJ 10 MG/ML VIAL 2 MG IVP ×2 (03:48→21:48)
[2024-09-02] MEDS: metroNIDAZOLE/NS 500 MG IVPB 500 MG/100 ML BAG 200 MG IV ×3 (05:12→21:36)
[2024-09-02 06:03] LABS: Basophils # (Auto) 0.0 Thou/mm3 (0.0-0.2); Basophils % (Auto) 0 % (0-2.5); Eosinophils # (Auto) 0.0 Thou/mm3 (0.0-0.5); Eosinophils % (Auto) 0 % (0-10); Hematocrit 31.9 % (36.0-46.0); Hemoglobin 11.0 g/dL (12.0-16.0); Immature Granulocytes Auto 0.06 Thou/mm3 (0.00-0.00); Lymphocytes # (Auto) 0.6 Thou/mm3 (1.0-4.8); Lymphocytes % (Auto) 5 % (10-50); Mean Corpuscular HGB Conc 34.5 g/dl (31.0-37.0); Mean Corpuscular Hemoglobin 28.7 pg (25.0-35.0); Mean Corpuscular Volume 83 fL (80-100); Monocytes # (Auto) 0.7 Thou/mm3 (0.0-0.8); Monocytes % (Auto) 6 % (0-12); Neutrophils # (Auto) 10.5 Thou/mm3 (1.8-7.7); Neutrophils % (Auto) 89 % (37-80); Nucleated Red Blood Cell # 0.00 Thou/mm3 (0.00-0.00); Nucleated Red Blood Cell % 0 /100 WBC (0); Platelet Count 185 Thou/mm3 (140-440); RDW Standard Deviation 43.6 fL (36.4-46.3); Red Blood Count 3.83 Miln/mm3 (4.00-5.20); White Blood Count 11.8 Thou/mm3 (3.6-11.0)
[2024-09-02 07:04] LABS: Alanine Aminotransferase 8 U/L (10-49); Albumin, Serum 3.7 gm/dL (3.4-4.8); Albumin/Globulin Ratio 1.5 (1.2-2.2); Alkaline Phosphatase 49 U/L (46-116); Anion Gap 11 (7-16); Aspartate Amino Transferase 13 U/L (0-34); BUN/Creatinine Ratio 30 Ratio (12-20); Bilirubin,Total 0.7 mg/dL (0.3-1.2); Blood Urea Nitrogen 18 mg/dL (9-23); Calcium 9.4 mg/dL (8.3-10.6); Calcium (Corrected) 9.6 mg/dL (8.5-10.1); Carbon Dioxide 26.8 mMol/L (20.0-31.0); Chloride 102 mMol/L (98-107); Creatinine (Component) 0.6 mg/dL (0.6-1.3); Estimated Creatinine Clearance 58.1 mL/min (>60); Globulin 2.4 gm/dL (2.3-3.5); Glucose 149 mg/dL (74-106); Magnesium 2.3 mg/dL (1.6-2.6); Osmolality,Calculated 284 (275-295); Potassium 3.2 mMol/L (3.4-5.1); Sodium 140 mMol/L (136-145); Total Protein 6.1 gm/dL (5.7-8.2); eGFR > 60 See Note
[2024-09-02] MEDS: CIPROFLOXACIN/D5w 400 MG IVPB 400 MG/200 ML BAG 200 MG IV ×2 (08:42→20:34)
[2024-09-02] MEDS: POTASSIUM CHL 10 mEq IVPB 10 MEQ/100 ML BAG 100 MEQ IV ×4 (09:54→12:54)
[2024-09-02] MEDS: INSULIN LISPRO (AdmeLOG) 1 UNIT/0.01 ML UNIT SC (11:34)
--- NOTE | 2024-09-02 12:27 | PD.SURPROG ---
Documentation for date of: 09/02/24 Subjective Subjective Narrative: Patient is seen and examined. She is resting comfortably. She is tolerating diet without nausea or vomiting Exam Vital Signs Temp Pulse Resp BP Pulse Ox O2 Del Method O2 Flow Rate 97.3 F 79 17 138/59 H 96 Room Air 2 09/02/24 12:00 09/02/24 12:00 09/02/24 12:00 09/02/24 12:00 09/02/24 12:00 09/02/24 12:00 08/31/24 23:24 Constitutional Constitutional: no acute distress Routine Abdominal Exam Comments: Abdomen is soft and nondistended. Incisions are clean, dry and intact. She has minimal tenderness to palpation over left side of the abdomen no rebound tenderness or peritonitis at this time Assessment & Plan Assessment Additional comments: Postop day #2 status post laparoscopic appendectomy for perforated gangrenous appendicitis with peritonitis Plan Continue IV antibiotics. Increase ambulation and use incentive spirometer PROCEDURES: Procedures Laparoscopic appendectomy with abdominal washout
[2024-09-02] MEDS: HYDROcodone/APAP 5/325 TABLET 1 TAB PO ×2 (12:53→20:41)
--- NOTE | 2024-09-02 18:32 | PD.RESPRO ---
Documentation for date of: 09/02/24 Subjective Subjective Interval history: No acute overnight events reported. Patient seen and examined at bedside this morning. Patient is postop day 2 states she has mild pain at the site of surgery but otherwise doing well. Vitals are stable patient has remained afebrile overnight labs are reviewed and electrolytes are repleted. Exam Vital Signs Temp Pulse Resp BP Pulse Ox O2 Del Method O2 Flow Rate 97 F 89 17 123/66 97 Room Air 2 09/02/24 16:00 09/02/24 16:00 09/02/24 16:00 09/02/24 16:09/02/24 16:00 09/02/24 16:00 08/31/24 23:24 Narrative Exam GENERAL: A&Ox3 . Awake, cooperative elderly female, Not in acute distress NEURO: no focal neurological deficits noted HEENT: Atraumatic, Normocephalic. mucous membranes moist. Eyes open, symmetrical, & clear HEART: Normal Heart Sounds LUNGS: Clear to auscultation with no wheezing or crackles. ABDOMEN: soft, non-distended, non-tender, no guarding or rebound tenderness, laporscopic surgical lacy seen, appear clean and non bleeding. SKIN: No Rash or ecchymoses EXTREMITIES: No edema, tenderness, able to move all 4 extremities, pedal pulses palpated Objective Labs 09/03/24 19:08 09/03/24 19:08 Labs: Laboratory Results - last 24 hr 09/02/24 04:46 WBC 11.8 H RBC 3.83 L Hgb 11.0 L Hct 31.9 L MCV 83 MCH 28.7 MCHC 34.5 RDW Std Deviation 43.6 Plt Count 185 Neut % (Auto) 89 H Lymph % (Auto) 5 L [place] % (Auto) 6 Eos % (Auto) 0 Baso % (Auto) 0 Neut # (Auto) 10.5 H Lymph # (Auto) 0.6 L [place] # (Auto) 0.7 Eos # (Auto) 0.0 Baso # (Auto) 0.0 Immature Gran # (Auto) 0.06 H Absolute Nucleated RBC 0.00 Immature Gran % 1 H Nucleated RBC % 0 Sodium 140 Potassium 3.2 L D Chloride 102 Carbon Dioxide 26.8 Anion Gap 11 BUN 18 Creatinine 0.6 Estim Creat Clear Calc 58.1 L eGFR > 60 BUN/Creatinine Ratio 30 H Glucose 149 H D Calculated Osmolality 284 Calcium 9.4 Corrected Calcium 9.6 Magnesium 2.3 Total Bilirubin 0.7 AST 13 ALT 8 L Alkaline Phosphatase 49 Total Protein 6.1 Albumin 3.7 D Globulin 2.4 Albumin/Globulin Ratio 1.5 Quality Measures Quality Measures none Advance care planning discussed with:: other Assessment & Plan Assessment Current Active Medications: Generic Name Dose Route Start Last Admin Trade Name Freq PRN Reason Stop Dose Admin Acetaminophen 650 mg 08/31/24 21:46 Acetaminophen 325 Mg Tablet PO 09/30/24 21:45 Q6H PRN Fever >100.4 Hydrocodone Bitart/Acetaminophen 1 tab 08/31/24 21:46 09/02/24 12:53 Hydrocodone/Apap 5/325 Tablet PO 09/05/24 21:45 1 tab Q4HR PRN Administration PAIN SCALE 4-6 (Moderate Dextrose 25 ml 08/31/24 21:46 Dextrose 50%-Water Inj 50 Ml Syringe IV 09/30/24 21:45 Q15MIN PRN BG 50-70 responsive npo pt Dextrose 50 ml 08/31/24 21:46 Dextrose 50%-Water Inj 50 Ml Syringe IV 09/30/24 21:45 Q15MIN PRN BG <50 OR BG <70 & pt unresponsive Docusate Sodium 100 mg 09/01/24 09:00 09/02/24 08:42 Docusate Sod 100 Mg Capsule PO 10/01/24 08:59 Not Given BID ANDREINA Protocol Glucagon 1 mg 08/31/24 21:46 Glucagon Inj 1 Mg Vial IM Q15MIN PRN BG <70, and no IV access Ciprofloxacin/Dextrose 400 mg in 200 mls @ 200 mls/hr 09/01/24 09:00 09/02/24 08:42 Cipro Ivpb IV 09/08/24 08:59 200 mls/hr Q12HR ANDREINA Administration Metronidazole 500 mg in 100 mls @ 200 mls/hr 09/01/24 06:00 09/02/24 14:56 Flagyl 500 Mg Iv IV 09/08/24 05:59 200 mls/hr Q8HR ANDREINA Administration Insulin Human Lispro 0 unit 09/01/24 17:00 09/02/24 17:27 Insulin Lispro (Admelog) 1 Unit/0.01 Ml Unit SC 10/01/24 16:59 Not Given AC ANDREINA Protocol Morphine Sulfate 2 mg 08/31/24 23:56 09/02/24 03:48 Morphine Sulf Inj 10 Mg/Ml Vial IVP 09/05/24 23:55 2 mg Q4HR PRN Administration PAIN SCALE 7-10 (Severe Ondansetron HCl 4 mg 08/31/24 21:46 Ondansetron Inj 2 Mg/Ml Inj 2 Ml IVP 09/30/24 21:45 Q6H PRN NAUSEA OR VOMITING Protocol Plan Ms. Saez is a 84-year-old female with past medical history of hypertension, DM2, and dementia was admitted to the hospital 08/31/2024 for acute appendicitis #Acute appendicitis s/p Laparoscopic appendectomy #Lactic acidosis-resolved Patient came in with abdominal pain as well as nausea and vomiting which started around noontime today. Abdomen/pelvis CT showed acute appendicitis. Lactic acid was 6.3 on admission -> 2.0 On 09/02/24 Patient underwent laparoscopic appendectomy with abdominal washout, other operative findings included gangrenous appendix with perforation and general peritonitis. Plan: -Carb consistent diet -Continue Flagyl and ciprofloxacin 08/31- -PT eval ordered -General Surgery following, appreciate commendations #Hyperbilirubinemia- resolved #Cholelithiasis On admission T.bilirubin of 1.4. Abdomen/pelvis CT also showed cholelithiasis as well as enlarged common bile duct at 8 mm and pancreatic duct mildly enlarged at 3 mm. No liver enzyme elevations DDx includes choledocholithiasis Plan: -Will continue to monitor T bilirubin -Pt will need outpatient follow up #[id number] type 2 diabetes -Patient home medication include metformin 850 mg daily -A1c 5.5 on 09/01/2024, blood glucose on admission is 212 Plan: -Insulin sliding scale ordered -Hypoglycemia protocol with Accu-Cheks -Diabetic diet ordered #Primary hypertension -BP on admission is normotensive, Pt's home medication include Losartan -Will continue to monitor BP, and will resume antihypertesnive when able #Hx of dementia -Pending med rec Disposition: Patient admitted to med surg s/p laparoscopic appendectomy Diet: Clear Liquid GI prophylaxis: not indicated DVT prophylaxis: SCDs Code: DNR Assessment and plan discussed with my attending physician Dr. Duke Glass (PGY-1)- Internal medicine resident Attending Provider Attestation/Addendum I have discussed and was present for the essential components of the history, physical examination, diagnosis, and treatment plan with the resident. I agree with the patient's care as documented by the resident and amended herein by me. Jonathan Wall DO. Although this document has been carefully reviewed, there may still be some phonetic and other typographical errors. These errors are purely grammatical due to imperfections in the software program and should not be construed in any way to compromise the substance of the patient's medical care during this visit.
[2024-09-02] MEDS: DOCUSATE SOD 100 MG CAPSULE PO (20:34)
[2024-09-03] VITALS (8 sets, daily range): BP systolic 122–163; BP diastolic 58–78; PULSE 68–126; RESP 15–99; TEMP 36–36.6; O2SAT 93–100
[2024-09-03] MEDS: MORPHINE SULF INJ 10 MG/ML VIAL 2 MG IVP ×3 (03:50→16:36)
[2024-09-03 05:16] LABS: Basophils # (Auto) 0.0 Thou/mm3 (0.0-0.2); Basophils % (Auto) 0 % (0-2.5); Eosinophils # (Auto) 0.0 Thou/mm3 (0.0-0.5); Eosinophils % (Auto) 0 % (0-10); Hematocrit 32.4 % (36.0-46.0); Hemoglobin 11.1 g/dL (12.0-16.0); Immature Granulocytes Auto 0.05 Thou/mm3 (0.00-0.00); Lymphocytes # (Auto) 0.7 Thou/mm3 (1.0-4.8); Lymphocytes % (Auto) 6 % (10-50); Mean Corpuscular HGB Conc 34.3 g/dl (31.0-37.0); Mean Corpuscular Hemoglobin 29.1 pg (25.0-35.0); Mean Corpuscular Volume 85 fL (80-100); Monocytes # (Auto) 0.6 Thou/mm3 (0.0-0.8); Monocytes % (Auto) 5 % (0-12); Neutrophils # (Auto) 10.5 Thou/mm3 (1.8-7.7); Neutrophils % (Auto) 88 % (37-80); Nucleated Red Blood Cell # 0.00 Thou/mm3 (0.00-0.00); Nucleated Red Blood Cell % 0 /100 WBC (0); Platelet Count 215 Thou/mm3 (140-440); RDW Standard Deviation 45.1 fL (36.4-46.3); Red Blood Count 3.82 Miln/mm3 (4.00-5.20); White Blood Count 11.9 Thou/mm3 (3.6-11.0)
[2024-09-03] MEDS: metroNIDAZOLE/NS 500 MG IVPB 500 MG/100 ML BAG 200 MG IV (05:23)
[2024-09-03 05:33] LABS: Alanine Aminotransferase < 7 U/L (10-49); Albumin, Serum 3.7 gm/dL (3.4-4.8); Albumin/Globulin Ratio 1.8 (1.2-2.2); Alkaline Phosphatase 49 U/L (46-116); Anion Gap 9 (7-16); Aspartate Amino Transferase 10 U/L (0-34); BUN/Creatinine Ratio 35 Ratio (12-20); Bilirubin,Total 0.7 mg/dL (0.3-1.2); Blood Urea Nitrogen 21 mg/dL (9-23); Calcium 9.6 mg/dL (8.3-10.6); Calcium (Corrected) 9.8 mg/dL (8.5-10.1); Carbon Dioxide 28.5 mMol/L (20.0-31.0); Chloride 98 mMol/L (98-107); Creatinine (Component) 0.6 mg/dL (0.6-1.3); Estimated Creatinine Clearance 58.1 mL/min (>60); Globulin 2.1 gm/dL (2.3-3.5); Glucose 191 mg/dL (74-106); Magnesium 1.8 mg/dL (1.6-2.6); Osmolality,Calculated 278 (275-295); Potassium 3.4 mMol/L (3.4-5.1); Sodium 135 mMol/L (136-145); Total Protein 5.8 gm/dL (5.7-8.2); eGFR > 60 See Note
--- NOTE | 2024-09-03 09:14 | PC.SS ---
Follow up note: Pt is on IV antibiotic. Pt will return if she is able to ambulate.
--- NOTE | 2024-09-03 09:22 | PC.SS ---
SS spoke to son, Ean and provided him with verbal options for d/c to home or SNF. Son's choice is SNF and prefers [facility]. SS attempted to contact Alejandra at [facility] but was unsuccessful.
[2024-09-03] MEDS: INSULIN LISPRO (AdmeLOG) 1 UNIT/0.01 ML UNIT SC ×3 (09:35→17:48)
[2024-09-03] MEDS: DOCUSATE SOD 100 MG CAPSULE PO ×2 (09:35→21:00)
[2024-09-03] MEDS: CIPROFLOXACIN/D5w 400 MG IVPB 400 MG/200 ML BAG 200 MG IV (09:35)
--- NOTE | 2024-09-03 09:47 | PC.SS ---
Late note 09-02-24: SS met with patient regarding d/c plan. Pt is alert/oriented. Pt was admitted for Acute Appendicitis. Pt states she resides with her son. Pt confirmed demographic and contact information is correct on facesheet. Pt resides with. Prior to being hospitalized, pt ambulated using a 4 wheel with seat, rollator walker. Pt is ok with all ADLs. Pt named her son, Ean Larsen medical decision maker if she is unable. Patient requested for SS to speak to her son about returning home. SS spoke to son to provide him with d/c options to home or SNF. Son is requesting SNF if pt is unable to ambulate independently and pt is agreeable. D/C plan: SNF Next of Kin: Ean Larsne, son, phone# [phone] PCP: [facility] in [place] Address: Correct on facesheet
[2024-09-03] MEDS: PIPER/TAZO 3.375 GM PREMIX 3.375 GM/50 ML BAG IV ×2 (12:51→22:42)
[2024-09-03] MEDS: HYDROmorphone INJ 2 MG/ML VIAL 0.25 MG IVP ×2 (12:58→18:59)
--- NOTE | 2024-09-03 13:18 | PC.NURSE ---
Patent complaining of severe right lower quadrant abdominal pain. Pain medication administered, see MAR. Abdomen is firm and distended. Bowel are hypoactive. Dr. Fernández and Dr. Wall notified.
--- NOTE | 2024-09-03 13:54 | PC.SS ---
PASRR assessment has been sent to [facility] using [employer]. SS met with Alejandra [place] and their business intelligence administrator and they will accept pt.
--- NOTE | 2024-09-03 14:38 | PD.SURPROG ---
Documentation for date of: 09/03/24 Subjective Subjective Narrative: Patient is seen and examined. Her pain and abdominal distention have increased since yesterday. She is tolerating diet without nausea or vomiting. According to the nurse patient has been passing flatus but no bowel movement yet Exam Vital Signs Temp Pulse Resp BP Pulse Ox O2 Del Method O2 Flow Rate 96.8 F 68 15 163/74 H 93 L Room Air 2 09/03/24 12:00 09/03/24 12:00 09/03/24 12:09/03/24 12:09/03/24 12:09/03/24 08:00 08/31/24 23:24 Constitutional Constitutional: no acute distress Routine Abdominal Exam Comments: Abdomen is soft but distended. She has tenderness to palpation over lower abdomen, no rebound tenderness or peritonitis Assessment & Plan Assessment Additional comments: Postop day #3 status post laparoscopic appendectomy with abdominal washout for perforated and gangrenous appendicitis with peritonitis Plan Continue IV antibiotics. She likely has postoperative ileus due to peritonitis. Suppository was ordered. Patient will need to increase ambulation to stimulate bowel function PROCEDURES: Procedures Laparoscopic appendectomy with abdominal washout
[2024-09-03] MEDS: HYDROcodone/APAP 5/325 TABLET 1 TAB PO (14:48)
--- NOTE | 2024-09-03 17:34 | ESPR_ITS ---
Documentation for date of: 09/03/24 Subjective Subjective Interval history: No acute overnight events reported. Patient seen and examined at bedside this morning. Patient has significant amount of tenderness in the abdomen. Abdominal distention is also noted however patient is not nauseous or vomiting and patient is passing flatus. Patient has not had a bowel movement since surgery and is not significant amount of pain therefore is not able to ambulate due to pain. Vitals are stable and labs are reviewed. WBC 11.9 hemoglobin 11.1. As per surgery recommendation patient does not need repeat imaging at this point, patient likely has postop ileus. Will continue IV antibiotics as per surgery recommendation and monitor for symptoms. Exam Vital Signs Temp Pulse Resp BP Pulse Ox O2 Del Method O2 Flow Rate 97.0 F 92 18 144/76 H 100 Room Air 2 09/03/24 16:00 09/03/24 16:00 09/03/24 16:00 09/03/24 16:00 09/03/24 16:00 09/03/24 16:00 08/31/24 23:24 Narrative Exam GENERAL: A&Ox3 . Awake, cooperative elderly female, Not in acute distress NEURO: no focal neurological deficits noted HEENT: Atraumatic, Normocephalic. mucous membranes moist. Eyes open, symmetrical, & clear HEART: Normal Heart Sounds LUNGS: Clear to auscultation with no wheezing or crackles. ABDOMEN: soft, non-distended, non-tender, no guarding or rebound tenderness, laporscopic surgical lacy seen, appear clean and non bleeding. SKIN: No Rash or ecchymoses EXTREMITIES: No edema, tenderness, able to move all 4 extremities, pedal pulses palpated Objective Labs 09/03/24 19:08 09/03/24 19:08 Labs: Laboratory Results - last 24 hr 09/03/24 04:53 WBC 11.9 H RBC 3.82 L Hgb 11.1 L Hct 32.4 L MCV 85 MCH 29.1 MCHC 34.3 RDW Std Deviation 45.1 Plt Count 215 D Neut % (Auto) 88 H Lymph % (Auto) 6 L Ogle % (Auto) 5 Eos % (Auto) 0 Baso % (Auto) 0 Neut # (Auto) 10.5 H Lymph # (Auto) 0.7 L Ogle # (Auto) 0.6 Eos # (Auto) 0.0 Baso # (Auto) 0.0 Immature Gran # (Auto) 0.05 H Absolute Nucleated RBC 0.00 Immature Gran % 0 Nucleated RBC % 0 Sodium 135 L Potassium 3.4 Chloride 98 Carbon Dioxide 28.5 Anion Gap 9 BUN 21 Creatinine 0.6 Estim Creat Clear Calc 58.1 L eGFR > 60 BUN/Creatinine Ratio 35 H Glucose 191 H Calculated Osmolality 278 Calcium 9.6 Corrected Calcium 9.8 Magnesium 1.8 Total Bilirubin 0.7 AST 10 ALT < 7 L Alkaline Phosphatase 49 Total Protein 5.8 Albumin 3.7 Globulin 2.1 L Albumin/Globulin Ratio 1.8 Quality Measures Quality Measures none Advance care planning discussed with:: other Assessment & Plan Assessment Current Active Medications: Generic Name Dose Route Start Last Admin Trade Name Freq PRN Reason Stop Dose Admin Acetaminophen 650 mg 08/31/24 21:46 Acetaminophen 325 Mg Tablet PO 09/30/24 21:45 Q6H PRN Fever >100.4 Hydrocodone Bitart/Acetaminophen 1 tab 08/31/24 21:46 09/03/24 14:48 Hydrocodone/Apap 5/325 Tablet PO 09/05/24 21:45 1 tab Q4HR PRN Administration PAIN SCALE 4-6 (Moderate Dextrose 25 ml 08/31/24 21:46 Dextrose 50%-Water Inj 50 Ml Syringe IV 09/30/24 21:45 Q15MIN PRN BG 50-70 responsive npo pt Dextrose 50 ml 08/31/24 21:46 Dextrose 50%-Water Inj 50 Ml Syringe IV 09/30/24 21:45 Q15MIN PRN BG <50 OR BG <70 & pt unresponsive Docusate Sodium 100 mg 09/01/24 09:00 09/03/24 09:35 Docusate Sod 100 Mg Capsule PO 10/01/24 08:59 100 mg BID ANDREINA Administration Protocol Glucagon 1 mg 08/31/24 21:46 Glucagon Inj 1 Mg Vial IM Q15MIN PRN BG <70, and no IV access Piperacillin/Tazobactam/Dextrose 3.375 gm in 50 mls @ 12.5 mls/hr 09/03/24 22:00 Zosyn IV 09/10/24 21:59 Q8HR [facility] Insulin Human Lispro 0 unit 09/01/24 17:00 09/03/24 11:57 Insulin Lispro (Admelog) 1 Unit/0.01 Ml Unit SC 10/01/24 16:59 3 unit AC ANDREINA Administration Protocol Morphine Sulfate 2 mg 08/31/24 23:56 09/03/24 16:36 Morphine Sulf Inj 10 Mg/Ml Vial IVP 09/05/24 23:55 2 mg Q4HR PRN Administration PAIN SCALE 7-10 (Severe Ondansetron HCl 4 mg 08/31/24 21:46 Ondansetron Inj 2 Mg/Ml Inj 2 Ml IVP 09/30/24 21:45 Q6H PRN NAUSEA OR VOMITING Protocol Plan Ms. Saez is a 84-year-old female with past medical history of hypertension, DM2, and dementia was admitted to the hospital 08/31/2024 for acute appendicitis #Acute appendicitis s/p Laparoscopic appendectomy POD #3 #Lactic acidosis-resolved Patient came in with abdominal pain as well as nausea and vomiting which started around noontime today. Abdomen/pelvis CT showed acute appendicitis. Lactic acid was 6.3 on admission -> 2.0 On 09/02/24 Patient underwent laparoscopic appendectomy with abdominal washout, other operative findings included gangrenous appendix with perforation and general peritonitis. Plan: -Carb consistent diet -Flagyl and ciprofloxacin 08/31-09/03 -Started Zosyn 09/03- -PT eval ordered -General Surgery following, appreciate commendations #Hyperbilirubinemia- resolved #Cholelithiasis On admission T.bilirubin of 1.4. Abdomen/pelvis CT also showed cholelithiasis as well as enlarged common bile duct at 8 mm and pancreatic duct mildly enlarged at 3 mm. No liver enzyme elevations DDx includes choledocholithiasis Plan: -Will continue to monitor T bilirubin -Pt will need outpatient follow up #[id number] type 2 diabetes -Patient home medication include metformin 850 mg daily -A1c 5.5 on 09/01/2024, blood glucose on admission is 212 Plan: -Insulin sliding scale ordered -Hypoglycemia protocol with Accu-Cheks -Diabetic diet ordered #Primary hypertension -BP on admission is normotensive, Pt's home medication include Losartan -Will continue to monitor BP, and will resume antihypertesnive when able #Hx of dementia -Pending med rec Disposition: Patient admitted to med surg s/p laparoscopic appendectomy Diet: Clear Liquid GI prophylaxis: not indicated DVT prophylaxis: SCDs Code: DNR Assessment and plan discussed with my attending physician Dr. Duke Glass (PGY-1)- Internal medicine resident Attending Provider Attestation/Addendum I have discussed and was present for the essential components of the history, physical examination, diagnosis, and treatment plan with the resident. I agree with the patient's care as documented by the resident and amended herein by me. Jonathan Wall DO. Patient seen and evaluated this AM. Vital signs stable, patient afebrile overnight, significant labs included WBC 14.1, hemoglobin stable 11.6, lactic acid this evening elevated to 2.5. Patient abdomen steadily more distended and firm throughout the day today however the patient was hungry and eating this evening. We were going to order a CT of the abdomen to assess considering the severity of the patient's ruptured appendix however per surgery, we will defer at this time as it may be of the early to assess. Will continue IV antibiotics for now and encourage ambulation with the patient. I did change the patient's antibiotics to Zosyn, no bowel movements reported as of yet however the patient is passing gas, will continue to monitor closely, physical therapy has been ordered. Although this document has been carefully reviewed, there may still be some phonetic and other typographical errors. These errors are purely grammatical due to imperfections in the software program and should not be construed in any way to compromise the substance of the patient's medical care during this visit.
--- NOTE | 2024-09-03 18:58 | XR_ITS ---
Examination: CT abdomen with intravenous contrast CT pelvis with intravenous contrast 2-D coronal reconstructions 2-D sagittal reconstructions Date and time of exam:September 04, 2024, 0315 hours INDICATIONS: Right lower abdominal pain today, acute appendicitis retrocecal with pericecal inflammatory change on CT abdomen and pelvis August 31, 2024. CTDI: vol (mGy) 11.6. DLP: (mGycm) 612. Technique: Multiple axial sections of the abdomen and pelvis have been obtained. 64 slice high-resolution scanner used. 3 mm axial sections have been obtained, post intravenous injection 60 cc [id number]. 2-D sagittal, coronal reconstructions obtained. Low dose protocols were performed. One or more of the following dose reduction techniques were used; automated exposure control, adjustment of the mA and/or KV according to patient size, use of iterative reconstruction technique. Findings: Mild gastritis pattern Bibasilar atelectasis versus pneumonia Minimal bilateral pleural fluid No focal liver or splenic lesions Distended gallbladder with gallstones Gastric mucosal thickening Common bile duct 8 mm Small fat-containing left adrenal nodule Small bilateral renal cysts, no hydronephrosis The abdominal aortic calcification Fluid-filled enlarged appendix axial image 126, coronal image 65 Atrophic uterus Mildly fluid distended small bowel loops Bilateral contracted around a Weeks catheter IMPRESSION: Tubular structure consistent with appendix, fluid-filled and enlarged, but clinical correlation is advised No pelvic abscess Distended gallbladder with gallstones, consider follow-up MRCP to assess gallbladder wall and extrahepatic biliary system
--- NOTE | 2024-09-03 19:00 | PD.RESEVENT ---
Documentation for date of: 09/03/24 Event Note Event Note: Rapid Response Room: [facility] Time: 6:50 pm Reason for Call: Severe abdominal pain, distention, tachycardia Patient presentation: Patient is post-op day 3 s/p ruptured appendicitis. Upon arrival patient is visibly in distress, in Indian reports severe 10/10 right lower abdominal pain. Vitals included temperature 97.8, BP 122/73, HR 122, RR 18, O2 93% on room air. Events: Patient had increasing level of pains and abdominal distention starting today. Patient was assessed at bedside by Team B residents throughout the day. Patient has been passing flatus. She has not had a BM since admission. Patient has been eating small portions of her meals. She denied nausea or vomiting, only severe right lower abdominal pain. Lap sites are intact without purulence or erythema. Abdomen was increasingly tense on later assessments. Patient has had good urine output. There have been no fevers. Assessment: Worsening post-op RLQ abdominal pain. Differentials include ileus, constipation, abscess collection, peritonitis, bowel perforation, bowel obstruction, volvulus, ischemic bowel. New orders: CT abdomen/pelvis with contrast Stat, CBC, CMP, and lactic acid. Night team asked to follow Patient was discussed with the attending, Dr. Heller, and residents, Geovanny Glass PGY-1, Yolande Ordonez PGY-1, and Allan Patten PGY-2. Dorota Fernández, PGY-2
[2024-09-03 19:20] LABS: Lactate (Lactic Acid) 2.5 mMol/L (0.4-2.0)
[2024-09-03 19:22] LABS: Basophils # (Auto) 0.0 Thou/mm3 (0.0-0.2); Basophils % (Auto) 0 % (0-2.5); Eosinophils # (Auto) 0.1 Thou/mm3 (0.0-0.5); Eosinophils % (Auto) 1 % (0-10); Hematocrit 34.4 % (36.0-46.0); Hemoglobin 11.6 g/dL (12.0-16.0); Immature Granulocytes Auto 0.09 Thou/mm3 (0.00-0.00); Lymphocytes # (Auto) 1.1 Thou/mm3 (1.0-4.8); Lymphocytes % (Auto) 8 % (10-50); Mean Corpuscular HGB Conc 33.7 g/dl (31.0-37.0); Mean Corpuscular Hemoglobin 28.9 pg (25.0-35.0); Mean Corpuscular Volume 86 fL (80-100); Monocytes # (Auto) 1.0 Thou/mm3 (0.0-0.8); Monocytes % (Auto) 7 % (0-12); Neutrophils # (Auto) 11.8 Thou/mm3 (1.8-7.7); Neutrophils % (Auto) 84 % (37-80); Nucleated Red Blood Cell # 0.00 Thou/mm3 (0.00-0.00); Nucleated Red Blood Cell % 0 /100 WBC (0); Platelet Count 238 Thou/mm3 (140-440); RDW Standard Deviation 45.1 fL (36.4-46.3); Red Blood Count 4.01 Miln/mm3 (4.00-5.20); White Blood Count 14.1 Thou/mm3 (3.6-11.0)
[2024-09-03 19:39] LABS: Anion Gap 9 (7-16); BUN/Creatinine Ratio 23 Ratio (12-20); Blood Urea Nitrogen 16 mg/dL (9-23); Calcium 9.5 mg/dL (8.3-10.6); Carbon Dioxide 28.2 mMol/L (20.0-31.0); Chloride 98 mMol/L (98-107); Creatinine (Component) 0.7 mg/dL (0.6-1.3); Estimated Creatinine Clearance 49.8 mL/min (>60); Glucose 189 mg/dL (74-106); Osmolality,Calculated 276 (275-295); Potassium 3.4 mMol/L (3.4-5.1); Sodium 135 mMol/L (136-145); eGFR > 60 See Note
--- NOTE | 2024-09-03 19:48 | PC.NURSE ---
Called CT to ask if Pt can already be brought down for imaging. Tech said she'll call me back as she is going to ER first.
[2024-09-03] MEDS: POTASSIUM CHL 10 mEq IVPB 10 MEQ/100 ML BAG 100 MEQ IV ×2 (20:06→21:40)
[2024-09-03] MEDS: SODIUM CHLORIDE 0.9% 1000 ML 1,000 ML 999 ML IV (20:42)
[2024-09-03 22:19] LABS: Reflex Lactate? Y
[2024-09-03 23:24] LABS: Lactic Acid, 3 HR 1.7 mMol/L (0.4-2.0)
[2024-09-04] VITALS (9 sets, daily range): BP systolic 106–162; BP diastolic 61–77; PULSE 77–103; RESP 17–96; TEMP 36–36.4; O2SAT 94–99; BMI 20.7
[2024-09-04] MEDS: MORPHINE SULF INJ 10 MG/ML VIAL 2 MG IVP (01:10)
--- NOTE | 2024-09-04 01:40 | XR_ITS ---
Examination: Abdomen AP single view Technique: AP portable supine abdomen, single view Exam date and time: September 04, 2024, 0152 hours INDICATIONS: Abdominal distention today. FINDINGS: Large amounts of stool in the colon especially rectosigmoid No free air Prominent osteopenia Moderate bilateral hip osteoarthritis IMPRESSION: Large amounts of stool in the colon
--- NOTE | 2024-09-04 04:41 | XR_ITS ---
Examination: AP chest single view TECHNIQUE: AP upright portable chest single view. Date and time: 450 hours Comparison 2024 INDICATIONS: Gastric tube placement FINDINGS: Orogastric tube tip in stomach satisfactory position Subsegmental atelectasis in the left ultrasound Normal heart size Significant osteopenia IMPRESSION: Orogastric tube projects in the stomach satisfactory position
[2024-09-04] MEDS: PIPER/TAZO 3.375 GM PREMIX 3.375 GM/50 ML BAG IV ×3 (05:41→21:47)
[2024-09-04 06:47] LABS: Basophils # (Auto) 0.0 Thou/mm3 (0.0-0.2); Basophils % (Auto) 0 % (0-2.5); Eosinophils # (Auto) 0.1 Thou/mm3 (0.0-0.5); Eosinophils % (Auto) 1 % (0-10); Hematocrit 32.5 % (36.0-46.0); Hemoglobin 11.0 g/dL (12.0-16.0); Immature Granulocytes Auto 0.07 Thou/mm3 (0.00-0.00); Lymphocytes # (Auto) 0.7 Thou/mm3 (1.0-4.8); Lymphocytes % (Auto) 6 % (10-50); Mean Corpuscular HGB Conc 33.8 g/dl (31.0-37.0); Mean Corpuscular Hemoglobin 28.9 pg (25.0-35.0); Mean Corpuscular Volume 86 fL (80-100); Monocytes # (Auto) 1.1 Thou/mm3 (0.0-0.8); Monocytes % (Auto) 10 % (0-12); Neutrophils # (Auto) 9.0 Thou/mm3 (1.8-7.7); Neutrophils % (Auto) 82 % (37-80); Nucleated Red Blood Cell # 0.00 Thou/mm3 (0.00-0.00); Nucleated Red Blood Cell % 0 /100 WBC (0); Platelet Count 219 Thou/mm3 (140-440); RDW Standard Deviation 45.3 fL (36.4-46.3); Red Blood Count 3.80 Miln/mm3 (4.00-5.20); White Blood Count 10.9 Thou/mm3 (3.6-11.0)
--- NOTE | 2024-09-04 07:27 | PRELIM_ITS ---
CT scan of the abdomen and pelvis with intravenous contrast (axial sections with sagittal and coronal reformats) September 04, 2024 at 0315 hours Clinical History: Acute abdominal pain s/p ruptured appy. Comparison: No prior study is available for comparison. Findings: Mild emphysematous changes are noted in the lungs. There are small bilateral pleural effusions, right greater than left with compressive atelectasis/consolidation of the underlying lung. There is subtle interstitial septal thickening in the bilateral lung bases. Small hypodense lesions noted in the liver, too small to characterize. The spleen is unremarkable. The main pancreatic duct is prominent similar to prior study. The gallbladder is distended and demonstrates a small calculus with subtle pericholecystic fat stranding. There is mild intrahepatic and extrahepatic biliary duct dilatation. No evidence of obstructing calculus in the common bile duct. Small hypodense lesions in the bilateral kidneys, too small to characterize. There is a 2 cm indeterminate left adrenal nodule (axial image 59/ 246). Mild nonspecific perinephric fat stranding is noted bilaterally. There is mild wall thickening versus underdistention of the stomach.No evidence of bowel obstruction. Fluid filled small bowel loops are noted and demonstrates fluid levels. Postoperative changes of appendectomy seen in the right lower quadrant and lower abdomen. There is tubular structure in the right lower quadrant adjacent to as colon near the tip of suture material (coronal image 126/246) measuring 1.5 x 1.3 x 2 cm ([id number]).There is no mesenteric or retroperitoneal adenopathy. The abdominal aorta demonstrates atheromatous calcification without evidence of aneurysm. The urinary bladder is incompletely distended at the time of the examination and appears mildly thick walled. A Weeks catheter is seen in the urinary bladder. There is fluid in the endometrial cavity. There is no free fluid or free air.Degenerative changes are identified in the spine. There is mild fat stranding with air loculi in the subcutaneous soft tissues of the left lower quadrant likely due to recent surgery. Impression: 1. Recent postoperative changes of appendectomy with small tubular structure in the right lower quadrant near the tip of suture material as described, probably remnant of tip of appendix , the possibility of small fluid collection cannot be excluded. Recommend follow-up. 2. Findings concerning for mild postoperative small bowel ileus .No evidence of bowel obstruction. Recommend clinical correlation. 3. Distended gallbladder with calculus and subtle pericholecystic fluid/fat stranding , the possibility of acute cholecystitis cannot be excluded. Recommend further evaluation with sonography, if clinically indicated. 4. Mild intrahepatic and extrahepatic biliary duct dilatation as described. Recommend further evaluation with MRCP , as clinically indicated. 5. Mild wall thickening versus underdistention of the stomach, the possibility of mild gastritis cannot be excluded. Recommend clinical correlation. 6. Small indeterminate left adrenal nodule as described. Recommend follow-up. 7. Small bilateral pleural effusions , left greater than right and the possibility of mild interstitial pulmonary edema cannot be excluded. Recommend clinical correlation. 8. Other findings as described above. Report Electronically Signed By: Wilma Crain 09/04/2024 7:26:15 AM [EST]
[2024-09-04 07:58] LABS: Anion Gap 9 (7-16); BUN/Creatinine Ratio 25 Ratio (12-20); Blood Urea Nitrogen 15 mg/dL (9-23); Calcium 9.8 mg/dL (8.3-10.6); Carbon Dioxide 27.6 mMol/L (20.0-31.0); Chloride 97 mMol/L (98-107); Creatinine (Component) 0.6 mg/dL (0.6-1.3); Estimated Creatinine Clearance 58.1 mL/min (>60); Glucose 192 mg/dL (74-106); Magnesium 1.7 mg/dL (1.6-2.6); Osmolality,Calculated 274 (275-295); Phosphorous 2.0 mg/dL (2.4-5.1); Potassium 3.6 mMol/L (3.4-5.1); Sodium 134 mMol/L (136-145); eGFR > 60 See Note
[2024-09-04] MEDS: KETOROLAC INJ 30 MG/ML VIAL 15 MG IVP (09:33)
--- NOTE | 2024-09-04 10:43 | PD.SURPROG ---
Documentation for date of: 09/04/24 Subjective Subjective Narrative: Patient is seen and examined. She had increased abdominal pain and distention, NG tube was placed. Exam Vital Signs Temp Pulse Resp BP Pulse Ox O2 Del Method O2 Flow Rate 97 F 95 17 162/76 H 95 Room Air 2 09/04/24 08:00 09/04/24 08:00 09/04/24 08:00 09/04/24 08:00 09/04/24 08:00 09/04/24 08:00 08/31/24 23:24 Constitutional Constitutional: moderate distress Routine Abdominal Exam Comments: Abdomen is soft but distended. She has tenderness to palpation throughout the abdomen, no rebound tenderness or peritonitis at this time Assessment & Plan Assessment Additional comments: Postop day #4 status post laparoscopic appendectomy for gangrenous and perforated appendicitis with peritonitis Plan Continue IV antibiotics. Clamp NG tube, had very minimal output. CT showed large amount of stool in the colon, she will require laxative and possibly enema to help her defecate. She will need to increase ambulation, will consult physical therapy PROCEDURES: Procedures Laparoscopic appendectomy with abdominal washout
--- NOTE | 2024-09-04 10:49 | PC.NURSE ---
Patient tolerated sitting upright in the recliner chair for one hour. Attempted ambulation was not tolerated due to generalized weakness.
[2024-09-04] MEDS: LACTULOSE SYRUP 20 GM/30 ML UDC 30 GM NG (11:00)
--- NOTE | 2024-09-04 12:13 | ESPR_ITS ---
Documentation for date of: 09/04/24 Subjective Subjective Interval history: Last night in the evening patient had a rapid response for tachycardia and significant abdominal pain. Imaging was ordered patient was placed NPO. Due to significantly dilated bowels and abundant of stool the night team decided to place NG tube. Patient seen and examined at bedside this morning. vitals are stable, pt has remained afebrile, labs are reviewed. NG tube is clamped patient had minimal output of only 100 cc. Patient continues to be in significant amount of pain. Patient and son at bedside are encouraged to increase her ambulation, ordered physical therapy, informed the nurse to increase pts ambulation by getting her out of bed and sitting on the chair. This is likely postoperative ileus. Patient is also given stool softener and laxative by surgery. Exam Vital Signs Temp Pulse Resp BP Pulse Ox O2 Del Method O2 Flow Rate 97 F 95 17 162/76 H 95 Room Air 2 09/04/24 08:00 09/04/24 08:00 09/04/24 08:00 09/04/24 08:00 09/04/24 08:00 09/04/24 08:00 08/31/24 23:24 Narrative Exam GENERAL: A&Ox3 . Awake, cooperative elderly female, Not in acute distress NEURO: no focal neurological deficits noted HEENT: Atraumatic, Normocephalic. mucous membranes moist. Eyes open, symmetrical, & clear HEART: Normal Heart Sounds LUNGS: Clear to auscultation with no wheezing or crackles. ABDOMEN: tender distended abdomen, laporscopic surgical lacy seen, appear clean and non bleeding. SKIN: No Rash or ecchymoses EXTREMITIES: No edema, tenderness, able to move all 4 extremities, pedal pulses palpated Objective Labs 09/04/24 05:40 09/04/24 05:40 Labs: Laboratory Results - last 24 hr 09/03/24 09/03/24 09/04/24 19:08 22:57 05:40 WBC 14.1 H 10.9 RBC 4.01 3.80 L Hgb 11.6 L 11.0 L Hct 34.4 L 32.5 L MCV 86 86 MCH 28.9 28.9 MCHC 33.7 33.8 RDW Std Deviation 45.1 45.3 Plt Count 238 219 Neut % (Auto) 84 H 82 H Lymph % (Auto) 8 L 6 L [place] % (Auto) 7 10 Eos % (Auto) 1 1 Baso % (Auto) 0 0 Neut # (Auto) 11.8 H 9.0 H Lymph # (Auto) 1.1 0.7 L [place] # (Auto) 1.0 H 1.1 H Eos # (Auto) 0.1 0.1 Baso # (Auto) 0.0 0.0 Immature Gran # (Auto) 0.09 H 0.07 H Absolute Nucleated RBC 0.00 0.00 Immature Gran % 1 H 1 H Nucleated RBC % 0 0 Sodium 135 L 134 L Potassium 3.4 3.6 Chloride 98 97 L Carbon Dioxide 28.2 27.6 Anion Gap 9 9 BUN 16 15 Creatinine 0.7 0.6 Estim Creat Clear Calc 49.8 L 58.1 L eGFR > 60 > 60 BUN/Creatinine Ratio 23 H 25 H Glucose 189 H 192 H Calculated Osmolality 276 274 L Lactic Acid 2.5 H 1.7 Calcium 9.5 9.8 Phosphorus 2.0 L Magnesium 1.7 Quality Measures Quality Measures none Advance care planning discussed with:: child Assessment & Plan Assessment Current Active Medications: Generic Name Dose Route Start Last Admin Trade Name Freq PRN Reason Stop Dose Admin Acetaminophen 650 mg 08/31/24 21:46 Acetaminophen 325 Mg Tablet PO 09/30/24 21:45 Q6H PRN Fever >100.4 Dextrose 25 ml 08/31/24 21:46 Dextrose 50%-Water Inj 50 Ml Syringe IV 09/30/24 21:45 Q15MIN PRN BG 50-70 responsive npo pt Dextrose 50 ml 08/31/24 21:46 Dextrose 50%-Water Inj 50 Ml Syringe IV 09/30/24 21:45 Q15MIN PRN BG <50 OR BG <70 & pt unresponsive Docusate Sodium 100 mg 09/01/24 09:00 09/04/24 09:37 Docusate Sod 100 Mg Capsule PO 10/01/24 08:59 Not Given BID [facility] Protocol Glucagon 1 mg 08/31/24 21:46 Glucagon Inj 1 Mg Vial IM Q15MIN PRN BG <70, and no IV access Piperacillin/Tazobactam/Dextrose 3.375 gm in 50 mls @ 12.5 mls/hr 09/03/24 22:00 09/04/24 05:41 Zosyn IV 09/10/24 21:59 12.5 mls/hr Q8HR ANDREINA Administration Insulin Human Lispro 0 unit 09/04/24 06:00 09/04/24 05:56 Insulin Lispro (Admelog) 1 Unit/0.01 Ml Unit SC 10/04/24 05:59 Not Given Q6HR ANDREINA Protocol Ketorolac Tromethamine 15 mg 09/04/24 01:47 09/04/24 09:33 Ketorolac Inj 30 Mg/Ml Vial IVP 09/09/24 01:46 15 mg X1 PRN Administration abdominal pain Morphine Sulfate 2 mg 08/31/24 23:56 09/04/24 01:10 Morphine Sulf Inj 10 Mg/Ml Vial IVP 09/05/24 23:55 2 mg Q4HR PRN Administration PAIN SCALE 7-10 (Severe Ondansetron HCl 4 mg 08/31/24 21:46 Ondansetron Inj 2 Mg/Ml Inj 2 Ml IVP 09/30/24 21:45 Q6H PRN NAUSEA OR VOMITING Protocol Plan Ms. Saez is a 84-year-old female with past medical history of hypertension, DM2, and dementia was admitted to the hospital 08/31/2024 for acute appendicitis #Acute appendicitis s/p Laparoscopic appendectomy POD #4 #Post-op ileus #Lactic acidosis-resolved Patient came in with abdominal pain as well as nausea and vomiting which started around noontime today. Abdomen/pelvis CT showed acute appendicitis. Lactic acid was 6.3 on admission -> 2.0 On 09/02/24 Patient underwent laparoscopic appendectomy with abdominal washout, other operative findings included gangrenous appendix with perforation and general peritonitis. Plan: -NPO -Flagyl and ciprofloxacin 08/31-09/03 -Started Zosyn 09/03- -PT eval ordered -Stool softner and laxative given by surgery -General Surgery following, appreciate commendations #Hyperbilirubinemia- resolved #Cholelithiasis On admission T.bilirubin of 1.4. Abdomen/pelvis CT also showed cholelithiasis as well as enlarged common bile duct at 8 mm and pancreatic duct mildly enlarged at 3 mm. No liver enzyme elevations DDx includes choledocholithiasis Plan: -Will continue to monitor T bilirubin -Pt will need outpatient follow up #[id number] type 2 diabetes -Patient home medication include metformin 850 mg daily -A1c 5.5 on 09/01/2024, blood glucose on admission is 212 Plan: -Insulin sliding scale ordered -Hypoglycemia protocol with Accu-Cheks -Diabetic diet ordered #Primary hypertension -BP on admission is normotensive, Pt's home medication include Losartan -Will continue to monitor BP, and will resume antihypertesnive when able #Hx of dementia -Pending med rec Disposition: Patient admitted to med surg s/p laparoscopic appendectomy Diet:NPO GI prophylaxis: not indicated DVT prophylaxis: SCDs Code: DNR Assessment and plan discussed with my attending physician Dr. Duke Glass (PGY-1)- Internal medicine resident Attending Provider Attestation/Addendum I have discussed and was present for the essential components of the history, physical examination, diagnosis, and treatment plan with the resident. I agree with the patient's care as documented by the resident and amended herein by me. Jonathan Wall, DO. Patient seen and evaluated this AM. Rapid response called overnight for further abdominal distention and pain. CT abdomen and pelvis was performed at that time demonstrating no pelvic abscess however a distended gallbladder with gallstones was seen. Bowel loops were also dilated. NG tube was placed overnight with minimal output. Today we will clamp the NG tube, we will also encourage ambulation and getting up to a chair is much as the patient can tolerate. Will continue Zosyn at this time, appreciate any additional surgical recommendations. Although this document has been carefully reviewed, there may still be some phonetic and other typographical errors. These errors are purely grammatical due to imperfections in the software program and should not be construed in any way to compromise the substance of the patient's medical care during this visit.
[2024-09-04] MEDS: ACETAMINOPHEN 325 MG TABLET 650 MG PO (14:58)
--- NOTE | 2024-09-04 20:09 | PC.NURSE ---
re med rec- Advised son to bring med bottles from home for dose verification.
[2024-09-04] MEDS: ACETAMINOPHEN 500 MG TABLET 1000 MG PO (21:47)
[2024-09-05 03:22] VITALS: BP 129/75; PULSE 78; RESP 24; TEMP 36.6; O2SAT 97
[2024-09-05] MEDS: PIPER/TAZO 3.375 GM PREMIX 3.375 GM/50 ML BAG IV ×3 (05:37→21:10)
[2024-09-05] MEDS: ACETAMINOPHEN 325 MG TABLET 650 MG PO ×3 (05:39→18:16)
[2024-09-05 06:00] LABS: Basophils # (Auto) 0.0 Thou/mm3 (0.0-0.2); Basophils % (Auto) 0 % (0-2.5); Eosinophils # (Auto) 0.2 Thou/mm3 (0.0-0.5); Eosinophils % (Auto) 2 % (0-10); Hematocrit 29.0 % (36.0-46.0); Hemoglobin 9.9 g/dL (12.0-16.0); Immature Granulocytes Auto 0.12 Thou/mm3 (0.00-0.00); Lymphocytes # (Auto) 0.8 Thou/mm3 (1.0-4.8); Lymphocytes % (Auto) 10 % (10-50); Mean Corpuscular HGB Conc 34.1 g/dl (31.0-37.0); Mean Corpuscular Hemoglobin 29.1 pg (25.0-35.0); Mean Corpuscular Volume 85 fL (80-100); Monocytes # (Auto) 1.3 Thou/mm3 (0.0-0.8); Monocytes % (Auto) 15 % (0-12); Neutrophils # (Auto) 6.3 Thou/mm3 (1.8-7.7); Neutrophils % (Auto) 72 % (37-80); Nucleated Red Blood Cell # 0.00 Thou/mm3 (0.00-0.00); Nucleated Red Blood Cell % 0 /100 WBC (0); Platelet Count 214 Thou/mm3 (140-440); RDW Standard Deviation 45.6 fL (36.4-46.3); Red Blood Count 3.40 Miln/mm3 (4.00-5.20); White Blood Count 8.8 Thou/mm3 (3.6-11.0)
[2024-09-05 06:40] LABS: Anion Gap 6 (7-16); BUN/Creatinine Ratio 27 Ratio (12-20); Blood Urea Nitrogen 16 mg/dL (9-23); Calcium 9.0 mg/dL (8.3-10.6); Carbon Dioxide 26.6 mMol/L (20.0-31.0); Chloride 107 mMol/L (98-107); Creatinine (Component) 0.6 mg/dL (0.6-1.3); Estimated Creatinine Clearance 58.1 mL/min (>60); Glucose 133 mg/dL (74-106); Magnesium 1.7 mg/dL (1.6-2.6); Osmolality,Calculated 282 (275-295); Phosphorous 3.1 mg/dL (2.4-5.1); Potassium 3.4 mMol/L (3.4-5.1); Sodium 140 mMol/L (136-145); eGFR > 60 See Note
[2024-09-05 07:57] VITALS: BP 150/97; PULSE 69; RESP 16; TEMP 36.2; O2SAT 97
[2024-09-05] MEDS: DOCUSATE SOD 100 MG CAPSULE PO ×2 (09:02→21:10)
[2024-09-05] MEDS: Milk Of Magnesia Susp 30 ML UDC PO (10:00)
[2024-09-05 10:41] VITALS: PULSE 78; RESP 18; RESP 95
[2024-09-05 12:00] VITALS: BP 149/70; PULSE 84; RESP 17; TEMP 36.7; O2SAT 96
--- NOTE | 2024-09-05 12:06 | ESPR_ITS ---
Documentation for date of: 09/05/24 Subjective Subjective Interval history: No acute events overnight. Patient had 1 large bowel movement and 1 small bowel movement this morning. Patient seen and examined at bedside this AM.?Per nursing, abdomen is much softer now. On examination the patient does still appear tender to palpation of all abdominal quadrants but is softer. Will discontinue NG tube and start clear liquids, observe for tolerance. Labs and vitals were reviewed.?Labs within normal limits with WBC downtrended, vitals are stable with no fevers. No further complaints at this time. Review of systems otherwise negative except what is mentioned above. Exam Vital Signs Temp Pulse Resp BP Pulse Ox O2 Del Method O2 Flow Rate 97.1 F 78 18 150/97 H 97 Room Air 2 09/05/24 07:57 09/05/24 10:41 09/05/24 10:41 09/05/24 07:57 09/05/24 07:57 09/05/24 03:22 08/31/24 23:24 Narrative Exam GENERAL: A&Ox3. Awake, cooperative elderly female, Not in acute distress NEURO: no focal neurological deficits noted HEENT: Atraumatic, Normocephalic. mucous membranes moist. Eyes open, symmetrical, & clear HEART: Normal Heart Sounds LUNGS: Clear to auscultation with no wheezing or crackles. ABDOMEN: tender distended abdomen, laparoscopic surgical lacy seen, appear clean and non bleeding. SKIN: No Rash or ecchymoses EXTREMITIES: No edema, tenderness, able to move all 4 extremities, pedal pulses palpated Objective Labs 09/05/24 04:52 09/05/24 04:52 Labs: Laboratory Results - last 24 hr 09/05/24 04:52 WBC 8.8 RBC 3.40 L Hgb 9.9 L Hct 29.0 L MCV 85 MCH 29.1 MCHC 34.1 RDW Std Deviation 45.6 Plt Count 214 Neut % (Auto) 72 Lymph % (Auto) 10 [place] % (Auto) 15 H Eos % (Auto) 2 Baso % (Auto) 0 Neut # (Auto) 6.3 Lymph # (Auto) 0.8 L [place] # (Auto) 1.3 H Eos # (Auto) 0.2 Baso # (Auto) 0.0 Immature Gran # (Auto) 0.12 H Absolute Nucleated RBC 0.00 Immature Gran % 1 H Nucleated RBC % 0 Sodium 140 Potassium 3.4 Chloride 107 Carbon Dioxide 26.6 Anion Gap 6 L BUN 16 Creatinine 0.6 Estim Creat Clear Calc 58.1 L eGFR > 60 BUN/Creatinine Ratio 27 H Glucose 133 H D Calculated Osmolality 282 Calcium 9.0 Phosphorus 3.1 Magnesium 1.7 Quality Measures Quality Measures none Advance care planning discussed with:: patient Assessment & Plan Assessment Current Active Medications: Generic Name Dose Route Start Last Admin Trade Name Freq PRN Reason Stop Dose Admin Acetaminophen 650 mg 08/31/24 21:46 09/05/24 05:39 Acetaminophen 325 Mg Tablet PO 09/30/24 21:45 650 mg Q6H PRN Administration Fever >100.4 Dextrose 25 ml 08/31/24 21:46 Dextrose 50%-Water Inj 50 Ml Syringe IV 09/30/24 21:45 Q15MIN PRN BG 50-70 responsive npo pt Dextrose 50 ml 08/31/24 21:46 Dextrose 50%-Water Inj 50 Ml Syringe IV 09/30/24 21:45 Q15MIN PRN BG <50 OR BG <70 & pt unresponsive Docusate Sodium 100 mg 09/01/24 09:00 09/05/24 09:02 Docusate Sod 100 Mg Capsule PO 10/01/24 08:59 100 mg BID ANDREINA Administration Protocol Glucagon 1 mg 08/31/24 21:46 Glucagon Inj 1 Mg Vial IM Q15MIN PRN BG <70, and no IV access Piperacillin/Tazobactam/Dextrose 3.375 gm in 50 mls @ 12.5 mls/hr 09/03/24 22:00 09/05/24 05:37 Zosyn IV 09/10/24 21:59 12.5 mls/hr Q8HR ANDREINA Administration Insulin Human Lispro 0 unit 09/05/24 11:30 Insulin Lispro (Admelog) 1 Unit/0.01 Ml Unit SC 10/05/24 11:29 ACHS ANDREINA Protocol Morphine Sulfate 2 mg 08/31/24 23:56 09/04/24 01:10 Morphine Sulf Inj 10 Mg/Ml Vial IVP 09/05/24 23:55 2 mg Q4HR PRN Administration PAIN SCALE 7-10 (Severe Ondansetron HCl 4 mg 08/31/24 21:46 Ondansetron Inj 2 Mg/Ml Inj 2 Ml IVP 09/30/24 21:45 Q6H PRN NAUSEA OR VOMITING Protocol Plan Ms. Saez is a 84-year-old female with past medical history of hypertension, DM2, and dementia was admitted to the hospital 08/31/2024 for acute appendicitis #Acute appendicitis s/p Laparoscopic appendectomy POD #4 #Post-op ileus #Lactic acidosis-resolved Patient came in with abdominal pain as well as nausea and vomiting which started around noontime today. Abdomen/pelvis CT showed acute appendicitis. Lactic acid was 6.3 on admission -> 2.0 On 09/02/24 Patient underwent laparoscopic appendectomy with abdominal washout, other operative findings included gangrenous appendix with perforation and general peritonitis. On Flagyl and ciprofloxacin 08/31-09/03 CT abdomen/pelvis with contrast showed no abscess, significant stools and distended bowel loops Plan: -Discontinued the NG tube -Started clear liquid diet -Continue Zosyn 09/03- -PT eval ordered -Stool softener and laxative given by surgery -General Surgery following, appreciate commendations #Hyperbilirubinemia- resolved #Cholelithiasis On admission T.bilirubin of 1.4. Abdomen/pelvis CT also showed cholelithiasis as well as enlarged common bile duct at 8 mm and pancreatic duct mildly enlarged at 3 mm. No liver enzyme elevations DDx includes choledocholithiasis Plan: -Will continue to monitor T bilirubin -Pt will need outpatient follow up #Non-insulin dependent type 2 diabetes -Patient home medication include metformin 850 mg daily -A1c 5.5 on 09/01/2024, blood glucose on admission is 212 Plan: -Insulin sliding scale ordered -Hypoglycemia protocol with Accu-Cheks -Diabetic diet ordered #Primary hypertension -BP on admission is normotensive, Pt's home medication include losartan -Will continue to monitor BP, and will resume antihypertensive when able #Hx of dementia -Delirium prevention Disposition: Patient on med tele s/p laparoscopic appendectomy Diet: Clears GI prophylaxis: not indicated DVT prophylaxis: SCDs Code: DNR Patient plan of care was discussed with the attending physician, Dr. Wall. Dorota Fernández, PGY-2 Attending Provider Attestation/Addendum I have discussed and was present for the essential components of the history, physical examination, diagnosis, and treatment plan with the resident. I agree with the patient's care as documented by the resident and amended herein by me. Jonathan Wall DO. Patient seen and evaluated this AM. Vital signs stable, patient afebrile overnight. Patient had 1 large bowel movement earlier this morning. Labs largely unremarkable, on physical examination, her abdomen is less tender to palpation and less distended today. Will continue to get the patient up to chair and walking as much she can tolerate, NG tube has been removed, will continue laxatives and advance diet as tolerated pending surgery recommendations Although this document has been carefully reviewed, there may still be some phonetic and other typographical errors. These errors are purely grammatical due to imperfections in the software program and should not be construed in any way to compromise the substance of the patient's medical care during this visit.
[2024-09-05] MEDS: INSULIN LISPRO (AdmeLOG) 1 UNIT/0.01 ML UNIT SC ×2 (12:15→17:06)
--- NOTE | 2024-09-05 12:34 | PD.SURPROG ---
Documentation for date of: 09/05/24 Subjective Subjective Narrative: Patient is seen and examined. She is feeling much better today. Her NG tube was removed and she was started on clear liquids. She had a large bowel movement Exam Vital Signs Temp Pulse Resp BP Pulse Ox O2 Del Method O2 Flow Rate 98.1 F 84 17 149/70 H 96 Room Air 2 09/05/24 12:00 09/05/24 12:00 09/05/24 12:00 09/05/24 12:00 09/05/24 12:00 09/05/24 03:22 08/31/24 23:24 Constitutional Constitutional: no acute distress Routine Abdominal Exam Comments: Abdomen is soft and much less distended. Incisions are clean, dry and intact. She has tenderness to deep palpation, no rebound tenderness or peritonitis at this time Assessment & Plan Assessment Additional comments: Status post laparoscopic appendectomy for perforated gangrenous appendicitis with peritonitis Plan Continue IV antibiotics. Patient is tolerating liquid diet, advance diet as tolerated PROCEDURES: Procedures Laparoscopic appendectomy with abdominal washout
[2024-09-05 16:00] VITALS: BP 130/59; PULSE 81; RESP 19; TEMP 36.4; O2SAT 96
[2024-09-05 20:00] VITALS: BP 155/61; PULSE 78; RESP 21; TEMP 36.1; O2SAT 96
[2024-09-06] VITALS (9 sets, daily range): BP systolic 125–174; BP diastolic 52–75; PULSE 72–86; RESP 10–96; TEMP 36.1–36.5; O2SAT 96–97
[2024-09-06] MEDS: ACETAMINOPHEN 325 MG TABLET 650 MG PO ×3 (04:16→21:43)
[2024-09-06] MEDS: PIPER/TAZO 3.375 GM PREMIX 3.375 GM/50 ML BAG IV ×3 (05:46→21:47)
[2024-09-06 06:09] LABS: Basophils # (Auto) 0.0 Thou/mm3 (0.0-0.2); Basophils % (Auto) 0 % (0-2.5); Eosinophils # (Auto) 0.1 Thou/mm3 (0.0-0.5); Eosinophils % (Auto) 1 % (0-10); Hematocrit 30.6 % (36.0-46.0); Hemoglobin 10.4 g/dL (12.0-16.0); Immature Granulocytes Auto 0.14 Thou/mm3 (0.00-0.00); Lymphocytes # (Auto) 0.9 Thou/mm3 (1.0-4.8); Lymphocytes % (Auto) 12 % (10-50); Mean Corpuscular HGB Conc 34.0 g/dl (31.0-37.0); Mean Corpuscular Hemoglobin 28.8 pg (25.0-35.0); Mean Corpuscular Volume 85 fL (80-100); Monocytes # (Auto) 1.1 Thou/mm3 (0.0-0.8); Monocytes % (Auto) 14 % (0-12); Neutrophils # (Auto) 5.3 Thou/mm3 (1.8-7.7); Neutrophils % (Auto) 71 % (37-80); Nucleated Red Blood Cell # 0.00 Thou/mm3 (0.00-0.00); Nucleated Red Blood Cell % 0 /100 WBC (0); Platelet Count 246 Thou/mm3 (140-440); RDW Standard Deviation 45.1 fL (36.4-46.3); Red Blood Count 3.61 Miln/mm3 (4.00-5.20); White Blood Count 7.5 Thou/mm3 (3.6-11.0)
[2024-09-06 06:36] LABS: Anion Gap 7 (7-16); BUN/Creatinine Ratio 32 Ratio (12-20); Blood Urea Nitrogen 16 mg/dL (9-23); Calcium 9.8 mg/dL (8.3-10.6); Carbon Dioxide 26.8 mMol/L (20.0-31.0); Chloride 102 mMol/L (98-107); Creatinine (Component) 0.5 mg/dL (0.6-1.3); Estimated Creatinine Clearance 69.7 mL/min (>60); Glucose 132 mg/dL (74-106); Magnesium 1.7 mg/dL (1.6-2.6); Osmolality,Calculated 275 (275-295); Phosphorous 3.0 mg/dL (2.4-5.1); Potassium 3.8 mMol/L (3.4-5.1); Sodium 136 mMol/L (136-145); eGFR > 60 See Note
--- NOTE | 2024-09-06 06:59 | ESPR_ITS ---
Documentation for date of: 09/06/24 Subjective Subjective Narrative: Patient is seen and examined. She is resting comfortably. She is tolerating liquids without nausea or vomiting and had multiple bowel movements Exam Vital Signs Temp Pulse Resp BP Pulse Ox O2 Del Method O2 Flow Rate 97.0 F 80 18 163/69 H 96 Room Air 2 09/06/24 04:00 09/06/24 04:31 09/06/24 04:31 09/06/24 05:48 09/06/24 04:00 09/06/24 04:00 08/31/24 23:24 Constitutional Constitutional: no acute distress Routine Abdominal Exam Comments: Abdomen is soft and minimally distended. Incisions are clean, dry and intact Assessment & Plan Assessment Additional comments: Status post laparoscopic appendectomy for perforated gangrenous appendicitis wit h peritonitis Plan Advance to diabetic diet PROCEDURES: Procedures Laparoscopic appendectomy with abdominal washout
--- NOTE | 2024-09-06 09:19 | PC.SS ---
Follow up note: Advance diet as tolerated. Pt will d/c to [facility].
[2024-09-06] MEDS: Magnesium Sulfate 2 GM Ivpb 2 GM/50 ML BAG IV (09:47)
[2024-09-06] MEDS: INSULIN LISPRO (AdmeLOG) 1 UNIT/0.01 ML UNIT SC ×2 (11:52→21:41)
--- NOTE | 2024-09-06 14:51 | PD.RESPRO ---
Documentation for date of: 09/06/24 Subjective Subjective Interval history: No acute overnight events reported. Patient seen and examined at bedside this morning. Vitals are stable, patient saturating on room air. Labs are reviewed and are within normal limits. Although patient appears to be a lot better and more alert and awake, patient continues to complain of abdominal tenderness. Patient continues to have bowel movement, will continue Zosyn for now and add bowel regimen and continue to monitor patient for symptom improvement and clearance from general surgery. Exam Vital Signs Temp Pulse Resp BP Pulse Ox O2 Del Method O2 Flow Rate 97.2 F 80 20 138/60 H 97 Room Air 2 09/06/24 12:00 09/06/24 12:00 09/06/24 12:00 09/06/24 12:09/06/24 12:09/06/24 12:00 08/31/24 23:24 Narrative Exam GENERAL: A&Ox3. Awake, Bel[place]ian speaking cooperative elderly female, Not in acute distress NEURO: no focal neurological deficits noted HEENT: Atraumatic, Normocephalic. mucous membranes moist. Eyes open, symmetrical, & clear HEART: Normal Heart Sounds LUNGS: Clear to auscultation with no wheezing or crackles. ABDOMEN: tender mildly distended abdomen, laparoscopic surgical lacy seen, appear clean and non bleeding, healing well SKIN: No Rash or ecchymoses EXTREMITIES: No edema, tenderness, able to move all 4 extremities, pedal pulses palpated Objective Labs 09/06/24 05:30 09/06/24 05:30 Labs: Laboratory Results - last 24 hr 09/06/24 05:30 WBC 7.5 RBC 3.61 L Hgb 10.4 L Hct 30.6 L MCV 85 MCH 28.8 MCHC 34.0 RDW Std Deviation 45.1 Plt Count 246 D Neut % (Auto) 71 Lymph % (Auto) 12 [place] % (Auto) 14 H Eos % (Auto) 1 Baso % (Auto) 0 Neut # (Auto) 5.3 Lymph # (Auto) 0.9 L [place] # (Auto) 1.1 H Eos # (Auto) 0.1 Baso # (Auto) 0.0 Immature Gran # (Auto) 0.14 H Absolute Nucleated RBC 0.00 Immature Gran % 2 H Nucleated RBC % 0 Sodium 136 Potassium 3.8 Chloride 102 Carbon Dioxide 26.8 Anion Gap 7 BUN 16 Creatinine 0.5 L Estim Creat Clear Calc 69.7 eGFR > 60 BUN/Creatinine Ratio 32 H Glucose 132 H Calculated Osmolality 275 Calcium 9.8 Phosphorus 3.0 Magnesium 1.7 Quality Measures Quality Measures none Advance care planning discussed with:: other Assessment & Plan Assessment Current Active Medications: Generic Name Dose Route Start Last Admin Trade Name Freq PRN Reason Stop Dose Admin Acetaminophen 650 mg 08/31/24 21:46 09/06/24 13:51 Acetaminophen 325 Mg Tablet PO 09/30/24 21:45 650 mg Q6H PRN Administration Fever >100.4 Dextrose 25 ml 08/31/24 21:46 Dextrose 50%-Water Inj 50 Ml Syringe IV 09/30/24 21:45 Q15MIN PRN BG 50-70 responsive npo pt Dextrose 50 ml 08/31/24 21:46 Dextrose 50%-Water Inj 50 Ml Syringe IV 09/30/24 21:45 Q15MIN PRN BG <50 OR BG <70 & pt unresponsive Docusate Sodium 100 mg 09/01/24 09:00 09/06/24 08:34 Docusate Sod 100 Mg Capsule PO 10/01/24 08:59 Not Given BID ANDREINA Protocol Glucagon 1 mg 08/31/24 21:46 Glucagon Inj 1 Mg Vial IM Q15MIN PRN BG <70, and no IV access Piperacillin/Tazobactam/Dextrose 3.375 gm in 50 mls @ 12.5 mls/hr 09/03/24 22:00 09/06/24 13:18 Zosyn IV 09/10/24 21:59 12.5 mls/hr Q8HR ANDREINA Administration Insulin Human Lispro 0 unit 09/05/24 11:30 09/06/24 11:52 Insulin Lispro (Admelog) 1 Unit/0.01 Ml Unit SC 10/05/24 11:29 2 unit ACHS ANDREINA Administration Protocol Ondansetron HCl 4 mg 08/31/24 21:46 Ondansetron Inj 2 Mg/Ml Inj 2 Ml IVP 09/30/24 21:45 Q6H PRN NAUSEA OR VOMITING Protocol Plan Ms. Saez is a 84-year-old female with past medical history of hypertension, DM2, and dementia was admitted to the hospital 08/31/2024 for acute appendicitis, Pt is status post laparoscopic appendectomy. #Acute appendicitis s/p Laparoscopic appendectomy POD #6 #Post-op ileus - improving #Lactic acidosis-resolved Patient came in with abdominal pain as well as nausea and vomiting which started around noontime today. Abdomen/pelvis CT showed acute appendicitis. Lactic acid was 6.3 on admission -> 2.0 On 09/02/24 Patient underwent laparoscopic appendectomy with abdominal washout, other operative findings included gangrenous appendix with perforation and general peritonitis. On Flagyl and ciprofloxacin 08/31-09/03 CT abdomen/pelvis with contrast showed no abscess, significant stools and distended bowel loops Plan: -Started carbohydrate consistent diet -Continue Zosyn 09/03- -PT eval ordered -Stool softener and laxative given by surgery -General Surgery following, appreciate commendations #Hyperbilirubinemia- resolved #Cholelithiasis On admission T.bilirubin of 1.4. Abdomen/pelvis CT also showed cholelithiasis as well as enlarged common bile duct at 8 mm and pancreatic duct mildly enlarged at 3 mm. No liver enzyme elevations DDx includes choledocholithiasis Plan: -Will continue to monitor T bilirubin -Pt will need outpatient follow up #Non-insulin dependent type 2 diabetes -Patient home medication include metformin 850 mg daily -A1c 5.5 on 09/01/2024, blood glucose on admission is 212 Plan: -Insulin sliding scale ordered -Hypoglycemia protocol with Accu-Cheks -Diabetic diet ordered #Primary hypertension -BP on admission is normotensive, Pt's home medication include losartan -Will continue to monitor BP, and will resume antihypertensive when able #Hx of dementia -Delirium prevention Disposition: Patient on med tele s/p laparoscopic appendectomy Diet: carb consistent GI prophylaxis: not indicated DVT prophylaxis: SCDs Code: DNR Assessment and plan discussed with my attending physician Dr. Duke Glass (PGY-1)- Internal medicine resident Attending Provider Attestation/Addendum I have discussed and was present for the essential components of the history, physical examination, diagnosis, and treatment plan with the resident. I agree with the patient's care as documented by the resident and amended herein by me. Jonathan Wall DO. No acute events overnight, patient seen and evaluated in the AM. Patient did have a bowel movement per nurse overnight, labs largely unremarkable. Abdomen soft, still a bit tender to palpation but improved from previous days. Will continue laxatives and broad-spectrum antibiotics for now, surgery consulted, appreciate recommendations. Patient's diet has been advanced, will continue to monitor for improvement. Although this document has been carefully reviewed, there may still be some phonetic and other typographical errors. These errors are purely grammatical due to imperfections in the software program and should not be construed in any way to compromise the substance of the patient's medical care during this visit.
[2024-09-06] MEDS: POLYETHYLENE GLYCOL 17 GM PACKET PO (16:40)
[2024-09-06] MEDS: DOCUSATE SOD 100 MG CAPSULE PO (21:43)
[2024-09-07] VITALS (13 sets, daily range): BP systolic 123–176; BP diastolic 51–76; PULSE 70–97; RESP 16–28; TEMP 36.1–36.8; O2SAT 96–98; BMI 20.7
[2024-09-07] MEDS: PIPER/TAZO 3.375 GM PREMIX 3.375 GM/50 ML BAG IV ×3 (05:46→22:03)
[2024-09-07 05:54] LABS: Basophils # (Auto) 0.0 Thou/mm3 (0.0-0.2); Basophils % (Auto) 0 % (0-2.5); Eosinophils # (Auto) 0.1 Thou/mm3 (0.0-0.5); Eosinophils % (Auto) 2 % (0-10); Hematocrit 28.9 % (36.0-46.0); Hemoglobin 9.6 g/dL (12.0-16.0); Immature Granulocytes Auto 0.16 Thou/mm3 (0.00-0.00); Lymphocytes # (Auto) 1.3 Thou/mm3 (1.0-4.8); Lymphocytes % (Auto) 19 % (10-50); Mean Corpuscular HGB Conc 33.2 g/dl (31.0-37.0); Mean Corpuscular Hemoglobin 28.5 pg (25.0-35.0); Mean Corpuscular Volume 86 fL (80-100); Monocytes # (Auto) 0.8 Thou/mm3 (0.0-0.8); Monocytes % (Auto) 13 % (0-12); Neutrophils # (Auto) 4.3 Thou/mm3 (1.8-7.7); Neutrophils % (Auto) 64 % (37-80); Nucleated Red Blood Cell # 0.00 Thou/mm3 (0.00-0.00); Nucleated Red Blood Cell % 0 /100 WBC (0); Platelet Count 249 Thou/mm3 (140-440); RDW Standard Deviation 45.4 fL (36.4-46.3); Red Blood Count 3.37 Miln/mm3 (4.00-5.20); White Blood Count 6.7 Thou/mm3 (3.6-11.0)
[2024-09-07 06:27] LABS: Anion Gap 5 (7-16); BUN/Creatinine Ratio 25 Ratio (12-20); Blood Urea Nitrogen 15 mg/dL (9-23); Calcium 9.1 mg/dL (8.3-10.6); Carbon Dioxide 28.4 mMol/L (20.0-31.0); Chloride 108 mMol/L (98-107); Creatinine (Component) 0.6 mg/dL (0.6-1.3); Estimated Creatinine Clearance 58.1 mL/min (>60); Glucose 114 mg/dL (74-106); Magnesium 1.9 mg/dL (1.6-2.6); Osmolality,Calculated 283 (275-295); Phosphorous 3.0 mg/dL (2.4-5.1); Potassium 4.1 mMol/L (3.4-5.1); Sodium 141 mMol/L (136-145); eGFR > 60 See Note
[2024-09-07] MEDS: DOCUSATE SOD 100 MG CAPSULE PO ×2 (08:57→22:02)
[2024-09-07] MEDS: LOSARTAN POTASSIUM 25 MG TABLET 50 MG PO (08:58)
[2024-09-07] MEDS: ACETAMINOPHEN 325 MG TABLET 650 MG PO ×2 (09:04→22:02)
--- NOTE | 2024-09-07 09:25 | PC.SS ---
Addendum entered by JULIENNE Baxter 09/07/24 15:38: SS follow up: per medical team Arsh Andrade, they will keep patient another day and possible d/c tomorrow to [facility]. Left a voicemail for Alejandra at [facility] to update. Addendum entered by JULIENNE Baxter 09/07/24 11:09: Updated SNF staff-Alejandra Caanda with [facility]. Original Note: SS update: patient is a possible d/c today to [facility], pending Dr. Erazo's approval.
[2024-09-07] MEDS: INSULIN LISPRO (AdmeLOG) 1 UNIT/0.01 ML UNIT SC ×2 (11:25→21:55)
--- NOTE | 2024-09-07 12:05 | PD.SURPROG ---
Documentation for date of: 09/07/24 Subjective Subjective Narrative: Patient is seen and examined. She is resting comfortably. She is tolerating diet and having bowel movements. Her pain is improving Exam Vital Signs Temp Pulse Resp BP Pulse Ox O2 Del Method O2 Flow Rate 97.0 F 70 17 163/74 H 96 Room Air 2 09/07/24 11:40 09/07/24 11:40 09/07/24 11:40 09/07/24 11:40 09/07/24 11:40 09/07/24 11:40 08/31/24 23:24 Constitutional Constitutional: no acute distress Routine Abdominal Exam Comments: Abdomen is soft and very minimally distended. Incisions are clean, dry and intact. She has minimal tenderness with palpation, no rebound tenderness or peritonitis at this time Assessment & Plan Assessment Additional comments: Status post laparoscopic appendectomy for perforated and gangrenous appendicitis with peritonitis Plan Clinically patient is improving. May discharge home on oral antibiotics (Cipro) for 1 week. Follow-up with Dr Erazo in 1 week PROCEDURES: Procedures Laparoscopic appendectomy with abdominal washout
--- NOTE | 2024-09-07 20:22 | PC.NURSE ---
pt BP 172/72. Dr. Hewitt notified, MD to place orders. Patient denies SOB, chest pain or any discomfort.
--- NOTE | 2024-09-07 20:28 | ESPR_ITS ---
Documentation for date of: 09/07/24 Subjective Subjective Interval history: Patient is an 84-year-old female with a past medical history of hypertension, diabetes mellitus type 2 [id number], and history of dementia who was initially admitted overnight on 08/31/2024 with a chief complaint of left lower quadrant pain and subsequently found acute appendicitis. Patient is now status post laparoscopic appendectomy with abdominal washout as of appendicitis with perforated and gangrenous with peritonitis on 08/31/2024. During hospital course patient has experienced ileus and urinary retention. 09/07/2024: Patient examined at bedside. Patient continues to complain of 10 out of 10 diffuse abdominal pain. Patient has remained afebrile overnight. 1 bowel movement today. Patient continues to have appropriate urine output, no urinary retention noted. Patient encouraged to ambulate. Plan to discharge in the next 24 hours. Recommendations by Castro, oral antibiotics Cipro floxacillin for 1 week. PT home health PT upon d/c. [place] x1 given Exam Vital Signs Temp Pulse Resp BP Pulse Ox O2 Del Method O2 Flow Rate 96.9 F 74 19 154/64 H 96 Room Air 2 09/07/24 16:00 09/07/24 16:40 09/07/24 16:00 09/07/24 16:00 09/07/24 16:00 09/07/24 16:00 08/31/24 23:24 Narrative Exam General Appearance: Alert & Oriented X3, thin male who is lying in bed in mild distress HEENT: Skull symmetrical and atraumatic. Conjunctivae pale pink and moist. Pupils equal, round, reactive to light and accommodation (PERRL). External ear without lesion or discharge. Straight, nares patient, mucosa pink, no discharge. No thyroid nodule appreciated. No cervical lymphadenopathy. Cardio: Normal Rate and Rhythm with S1 and S2 heart sounds. No murmurs or extra heart sounds auscultated. No bruits on carotid auscultation. No peripheral edema or cyanosis. Lungs: Symmetric with good expansion. Chest and back non-tender. Breath sounds vesicular without crackles, wheezing or rhonchi Abdomen:tender, mild distended, decreased bowel sounds. Neuro: Alert, cooperative, oriented to person, place, and time. Speech clear. CN grossly intact. Upper motor strength 5/5 and Lower motor strength 5/5. Sensation intact. Objective Labs 09/08/24 05:31 09/08/24 05:31 Labs: Laboratory Results - last 24 hr 09/07/24 05:14 WBC 6.7 RBC 3.37 L Hgb 9.6 L Hct 28.9 L MCV 86 MCH 28.5 MCHC 33.2 RDW Std Deviation 45.4 Plt Count 249 Neut % (Auto) 64 Lymph % (Auto) 19 [place] % (Auto) 13 H Eos % (Auto) 2 Baso % (Auto) 0 Neut # (Auto) 4.3 Lymph # (Auto) 1.3 [place] # (Auto) 0.8 Eos # (Auto) 0.1 Baso # (Auto) 0.0 Immature Gran # (Auto) 0.16 H Absolute Nucleated RBC 0.00 Immature Gran % 2 H Nucleated RBC % 0 Sodium 141 Potassium 4.1 Chloride 108 H Carbon Dioxide 28.4 Anion Gap 5 L BUN 15 Creatinine 0.6 Estim Creat Clear Calc 58.1 L eGFR > 60 BUN/Creatinine Ratio 25 H Glucose 114 H Calculated Osmolality 283 Calcium 9.1 Phosphorus 3.0 Magnesium 1.9 Quality Measures Quality Measures none Advance care planning discussed with:: patient Assessment & Plan Assessment Current Active Medications: Generic Name Dose Route Start Last Admin Trade Name Freq PRN Reason Stop Dose Admin Acetaminophen 650 mg 09/07/24 08:58 09/07/24 09:04 Acetaminophen 325 Mg Tablet PO 09/30/24 21:45 650 mg Q6H PRN Administration Mild Pain 1-3 or Fever >100.3 Dextrose 25 ml 08/31/24 21:46 Dextrose 50%-Water Inj 50 Ml Syringe IV 09/30/24 21:45 Q15MIN PRN BG 50-70 responsive npo pt Dextrose 50 ml 08/31/24 21:46 Dextrose 50%-Water Inj 50 Ml Syringe IV 09/30/24 21:45 Q15MIN PRN BG <50 OR BG <70 & pt unresponsive Docusate Sodium 100 mg 09/01/24 09:00 09/07/24 08:57 Docusate Sod 100 Mg Capsule PO 10/01/24 08:59 100 mg BID ANDREINA Administration Protocol Glucagon 1 mg 08/31/24 21:46 Glucagon Inj 1 Mg Vial IM Q15MIN PRN BG <70, and no IV access Piperacillin/Tazobactam/Dextrose 3.375 gm in 50 mls @ 12.5 mls/hr 09/03/24 22:00 09/07/24 13:07 Zosyn IV 09/10/24 21:59 12.5 mls/hr Q8HR ANDREINA Administration Insulin Human Lispro 0 unit 09/05/24 11:30 09/07/24 16:45 Insulin Lispro (Admelog) 1 Unit/0.01 Ml Unit SC 10/05/24 11:29 Not Given ACHS ANDREINA Protocol Losartan Potassium 50 mg 09/07/24 09:00 09/07/24 08:58 Losartan Potassium 25 Mg Tablet PO 10/07/24 08:59 50 mg QDAY ANDREINA Administration Ondansetron HCl 4 mg 08/31/24 21:46 Ondansetron Inj 2 Mg/Ml Inj 2 Ml IVP 09/30/24 21:45 Q6H PRN NAUSEA OR VOMITING Protocol Plan Patient is an 84-year-old female with a past medical history of hypertension, diabetes mellitus type 2 [id number], and history of dementia patient was admitted for acute appendicitis. #Acute appendicitis s/p Laparoscopic appendectomy s/p day 7 (08/31/2024) #Post-op ileus - improving #Lactic acidosis-resolved Patient came in with abdominal pain as well as nausea and vomiting which started around noontime today. Abdomen/pelvis CT showed acute appendicitis. Lactic acid was 6.3 on admission -> 2.0 On 09/02/24 Patient underwent laparoscopic appendectomy with abdominal washout, other operative findings included gangrenous appendix with perforation and general peritonitis. On Flagyl and ciprofloxacin 08/31-09/03 CT abdomen/pelvis with contrast showed no abscess, significant stools and distended bowel loops Plan: -D/C patient on Ciprofloxacin for additional week. -Continue Zosyn 09/03- -Stool softener and laxative given by surgery -General Surgery following, appreciate commendations #Hyperbilirubinemia- resolved #Cholelithiasis On admission T.bilirubin of 1.4. Abdomen/pelvis CT also showed cholelithiasis as well as enlarged common bile duct at 8 mm and pancreatic duct mildly enlarged at 3 mm. No liver enzyme elevations DDx includes choledocholithiasis Plan: -Will continue to monitor T bilirubin -Pt will need outpatient follow up #Non-insulin dependent type 2 diabetes, non-insulin dependent -Patient home medication include metformin 850 mg daily -A1c 5.5 on 09/01/2024, blood glucose on admission is 212 09/07/2024: fasting glucose 114 Plan: -Insulin sliding scale ordered -Hypoglycemia protocol with Accu-Cheks -Diabetic diet ordered #Primary hypertension Patient has home medication of Losartan 100 mg once daily and Amlodipine 5 mg once daily. Plan -Losartan 50 mg once daily #Hx of dementia No medication listed at part of home medication. Patient continues to be alert and orientated x 3. Disposition: Patient on med tele s/p laparoscopic appendectomy Diet: carb consistent GI prophylaxis: not indicated DVT prophylaxis: SCDs Code: DNR - The patient's plan was discussed with attending Dr. Duke Tripp MD PGY1 Internal Medicine Attending Provider Attestation/Addendum I have discussed and was present for the essential components of the history, physical examination, diagnosis, and treatment plan with the resident. I agree with the patient's care as documented by the resident and amended herein by me. Jonathan Wall DO. Although this document has been carefully reviewed, there may still be some phonetic and other typographical errors. These errors are purely grammatical due to imperfections in the software program and should not be construed in any way to compromise the substance of the patient's medical care during this visit.
[2024-09-08] VITALS (7 sets, daily range): BP systolic 130–159; BP diastolic 59–63; PULSE 71–96; RESP 16–22; TEMP 36–36.6; O2SAT 96–98
--- NOTE | 2024-09-08 01:11 | PC.NURSE ---
Patient experienced trigeminy run as observed by ICU clam treader tech. Patient was asymptomatic and denied shortness of breath, or discomfort. MD was notified. Will continue to monitor.
[2024-09-08] MEDS: PIPER/TAZO 3.375 GM PREMIX 3.375 GM/50 ML BAG IV ×2 (06:05→14:50)
[2024-09-08 06:12] LABS: Basophils # (Auto) 0.0 Thou/mm3 (0.0-0.2); Basophils % (Auto) 0 % (0-2.5); Eosinophils # (Auto) 0.1 Thou/mm3 (0.0-0.5); Eosinophils % (Auto) 2 % (0-10); Hematocrit 31.1 % (36.0-46.0); Hemoglobin 10.1 g/dL (12.0-16.0); Immature Granulocytes Auto 0.14 Thou/mm3 (0.00-0.00); Lymphocytes # (Auto) 1.6 Thou/mm3 (1.0-4.8); Lymphocytes % (Auto) 23 % (10-50); Mean Corpuscular HGB Conc 32.5 g/dl (31.0-37.0); Mean Corpuscular Hemoglobin 28.5 pg (25.0-35.0); Mean Corpuscular Volume 88 fL (80-100); Monocytes # (Auto) 0.7 Thou/mm3 (0.0-0.8); Monocytes % (Auto) 9 % (0-12); Neutrophils # (Auto) 4.6 Thou/mm3 (1.8-7.7); Neutrophils % (Auto) 64 % (37-80); Nucleated Red Blood Cell # 0.00 Thou/mm3 (0.00-0.00); Nucleated Red Blood Cell % 0 /100 WBC (0); Platelet Count 277 Thou/mm3 (140-440); RDW Standard Deviation 46.8 fL (36.4-46.3); Red Blood Count 3.54 Miln/mm3 (4.00-5.20); White Blood Count 7.1 Thou/mm3 (3.6-11.0)
[2024-09-08 06:56] LABS: Anion Gap 4 (7-16); BUN/Creatinine Ratio 22 Ratio (12-20); Blood Urea Nitrogen 13 mg/dL (9-23); Calcium 9.2 mg/dL (8.3-10.6); Carbon Dioxide 29.1 mMol/L (20.0-31.0); Chloride 109 mMol/L (98-107); Creatinine (Component) 0.6 mg/dL (0.6-1.3); Estimated Creatinine Clearance 58.1 mL/min (>60); Glucose 114 mg/dL (74-106); Osmolality,Calculated 284 (275-295); Potassium 4.1 mMol/L (3.4-5.1); Sodium 142 mMol/L (136-145); eGFR > 60 See Note
[2024-09-08] MEDS: LOSARTAN POTASSIUM 25 MG TABLET 50 MG PO (09:09)
[2024-09-08] MEDS: DOCUSATE SOD 100 MG CAPSULE PO (09:09)
[2024-09-08] MEDS: ACETAMINOPHEN 325 MG TABLET 650 MG PO (09:09)
--- NOTE | 2024-09-08 10:54 | PC.SS ---
Addendum entered by JULIENNE Baxter 09/08/24 10:59: Transport ETA from [facility] staff is 3:30pm. Bed side RN-Romeo is aware. Addendum entered by JULIENNE Baxter 09/08/24 10:57: SS update: attempted to arrange transport via [employer], however the staff informs that patient's account is not active. Contacted SNF staff Alejandra to identify if they have transport available. Pending response. Original Note: SS follow up: patient has d/c orders. Patient going to [facility]. Patient is aware. Attempted to contact, patient shelley Mckoy, with no success.
[2024-09-08] MEDS: INSULIN LISPRO (AdmeLOG) 1 UNIT/0.01 ML UNIT SC (11:18)
--- NOTE | 2024-09-08 16:00 | ESDS_ITS ---
Planned Discharge Date 09/08/24 DS: Providers Provider Date of admission: 08/31/24 21:46 Primary care physician: Physician No Primary/Family Admitting Provider: Hans Glass MD Attending Provider on Admission: Chung Wall DO Consults: 08/31/24 21:50 Consult to General Surgery Routine Comment: Consulting Provider: Mumtaz Erazo 09/02/24 11:44 Referral Physical Therapy Stat Comment: Physician Instructions: Attending Provider on DC: Yolande Tripp MD Discharging Provider: Yolande Tripp MD DS: Diagnosis Problem List Completed Was Problem List Reviewed/Reconciled?: Yes Hospital Course Hospital Course Hospital course: Patient is an 84-year-old female with a past medical history of hypertension, diabetes mellitus type 2 [id number]-[id number] on home metformin oral who was initially admitted on 08/31/2024 with a chief complaint of left lower quadrant pain and subsequently found to have acute appendicitis now status post laparoscopic appendectomy found perforated and gangrenous leading to peritonitis. Patient was treated adequately with oral antibiotics and will be discharged on oral ciprofloxacin for 7-day course to SNF. ER: Initially came in mildly hypotensive and tachycardic, but afebrile. Initial labs were elevated for lactic acidosis, hyperbilirubinemia, and elevated procalcitonin. Initial imaging included abdomen/pelvis CT which showed acute appendicitis as well as cholelithiasis with a CBD of 8 mm as well as pancreatic diet mildly enlarged at 3 mm as well with some liver lesions. Chest x-ray is unremarkable and EKG was sinus rhythm with no ST changes. ED provider spoke with general surgery who is going to take the patient to the OR tonight. Hospital course Patient was admitted on 08/31/2024 overnight and was immediately taken to the OR for emergency laparoscopic appendectomy found to have gangrenous appendix with perforation and generalized peritonitis. Patient was started on antibiotics with ciprofloxacin and Flagyl. Patient's lactic acid continue to trend down from 6.3 on admission to 2.0. Flagyl and ciprofloxacin discontinued on 08/31/2024 with addition of Zosyn given increasing abdominal distention and complaining of diffuse abdominal tenderness with decreasing bowel sounds. Rapid event overnight on 09/03/2024 secondary to tachycardia and abdominal distention. Repeat CT, CBC and CMP and lactic acid obtained. NG to place given concern for small bowel obstruction, ileus noted on CT abdomen, postop day 4. NG tube in normal output recorded. Diffuse stools in the colon with lactulose given. Weeks catheter added as well as patient presented with retention. Patient's hyperbilirubinemia continue to downtrend. Patient was started on sliding scale for history of type 2 diabetes mellitus [id number] A1c of 5.5 upon admission. Given patient's soft blood pressure medication losartan was withheld. Given patient's complicated course additional 7 days of ciprofloxacin will be added. Physical therapy ordered, recommended patient follow-up with SNF. Safe to discharge to SNF #Acute appendicitis s/p Laparoscopic appendectomy s/p (08/31/2024) #Post-op ileus, resolved. #Lactic acidosis, resolved #Hyperbilirubinemia- resolved #Cholelithiasis #Diabetes Mellitus type 2, non-insulin depedent #Hypertension #hx of Dementia - Please take ciprofloxacin 500 mg orally twice daily, the next 7 days - Continue all medication as prescribed - Continue to monitor blood pressure at home, hold blood pressure medication if systolic blood pressure less than 120 - Please follow-up with Dr. Erazo, general surgeon, within 1 week of discharge. -Please follow up with your primary care provider within one week of discharge -If your symptoms worsen,please seek immediate medical attention and return to your nearest emergency room -If you do not have a primary care provider, you may follow up at the [facility] at [address] [place] [address] [address], [place] [address], - The patient's plan was discussed with attending Dr. Duke Tripp MD PGY2 Internal Medicine Time Spent with Patient Time attestation: Total time spent providing and/or coordinating discharge services: at least 30 minutes of care and coordination Time spent: Greater than 30 minutes Exam Vital Signs Temp Pulse Resp BP Pulse Ox O2 Del Method O2 Flow Rate 97.8 F 71 18 130/60 98 Room Air 2 09/08/24 11:56 09/08/24 12:30 09/08/24 11:56 09/08/24 11:56 09/08/24 11:56 09/08/24 11:56 08/31/24 23:24 Narrative Exam General Appearance: Alert & Oriented X3, well-nourished female who is lying in bed in mild discomfort. No discharge noted for laproscopic lesions. HEENT: Skull symmetrical and atraumatic. Conjunctivae pale pink and moist. Pupils equal, round, reactive to light and accommodation (PERRL). External ear without lesion or discharge. Cardio: Normal Rate and Rhythm with S1 and S2 heart sounds. No murmurs or extra heart sounds auscultated. No bruits on carotid auscultation. No peripheral edema or cyanosis. Lungs: Symmetric with good expansion. Chest and back non-tender. Breath sounds vesicular without crackles, wheezing or rhonchi Abdomen: Mild tenderness, non distended, bowel sounds present. Neuro: Alert, cooperative, oriented to person, place, and time. Speech clear. CN grossly intact. Upper motor strength 5/5 and Lower motor strength 5/5. Sensation intact. Discharge Plan Plan Patient Disposition: Xfer Skilled Ns Fac (SNF) Patient condition on transfer: Stable Care Plan Goals: Instructions: - Please take ciprofloxacin 500 mg orally twice daily, the next 7 days - Continue all medication as prescribed - Continue to monitor blood pressure at home, hold blood pressure medication if systolic blood pressure less than 120 - Please follow-up with Dr. Erazo, general surgeon, within 1 week of discharge. -Please follow up with your primary care provider within one week of discharge -If your symptoms worsen,please seek immediate medical attention and return to your nearest emergency room -If you do not have a primary care provider, you may follow up at the [facility] at [address] [place] [address] [address], [place] [address], Prescriptions/Referrals Prescriptions/Med Rec: New ciprofloxacin HCl [Cipro] 500 mg tablet 500 mg PO BID 7 Days Qty: 14 0RF hydrocodone-acetaminophen 5-300 mg tablet 1 tab PO Q8H MDD one pill 8 hrs as needed PRN (Reason: pain) Qty: 14 0RF senna 8.6 mg capsule 8.6 mg PO BID PRN (Reason: constipation) Qty: 14 0RF Continued metformin 850 mg tablet 850 mg PO BIDWMEAL aspirin [Enteric Coated Aspirin] 81 mg tablet,delayed release (DR/EC) 81 mg PO QDAY amlodipine 5 mg PO QDAY losartan 100 mg PO QDAY Referrals: Mumtaz Erazo MD [Physician] - No Primary/Family,Physician [Primary Care Provider] - Patient/Caregiver Discharge Instructions Education Materials: What Is Appendicitis?, Appendectomy Laparoscopic Dc, Preventing Surgical Site Infections Print Language: Turkish Stand Alone Forms: Concepcion Award Info., Patient Portal Info Letter Discharge Order Discharge Orders: Discharge (Routine); Ordered 09/08/24 Ordered By: Dann Mcclelland Quality Discharge Quality Measures VTE prophylaxis Attestestation Attestation I have discussed and was present for the essential components of the discharge history, physical examination, diagnosis, and discharge treatment plan with the resident. I agree with the patient's discharge care as documented by the resident and amended herein by me. Jonathan Wall, DO. Patient much improved on day of discharge, patient cleared for DC to SNF per surgery on ciprofloxacin 500 mg twice daily for 1 additional week. Patient did have some mild tenderness to palpation to her lower abdomen which should resolve over time. Recommend patient get up to chair and ambulate is much as possible to avoid constipation. Patient was stable, afebrile, tolerating p.o. intake and ambulatory at time of discharge to SNF. The patient understood all discharge instructions, all questions were answered satisfactorily. The patient was instructed to return to the Emergency Department is symptoms worsened or persisted. Although this document has been carefully reviewed, there may still be some phonetic and other typographical errors. These errors are purely grammatical due to imperfections in the software program and should not be construed in any way to compromise the substance of the patient's medical care during this visit.
== END 2024-09-08 16:05 | disposition skilled nursing facility (03) | DRG 398 ==
LOC: SERX 21:28 → SERHOLD 22:01 → S3SX 09-01 06:22
PROVIDERS: Nurse Practitioner Primary Care; Physician Assistant Medical; Student in an Organized Health Care Education/Training Program; Surgery; Admitting Provider Student in an Organized Health Care Education/Training Program; Emergency Provider Family Medicine; Visit Provider Student in an Organized Health Care Education/Training Program
PROC: 0DTJ4ZZ Resection of Appendix, Percutaneous Endoscopic Approach (ICD-10-PCS; CPT 44970; principal; 2024-08-31 22:30)
DX: K35.32 Acute appendicitis with perforation, localized peritonitis, and gangrene, without abscess (principal); E87.20 Acidosis, unspecified; K56.7 Ileus, unspecified; K91.89 Other postprocedural complications and disorders of digestive system; E11.9 Type 2 diabetes mellitus without complications; F03.90 Unspecified dementia, unspecified severity, without behavioral disturbance, psychotic disturbance, mood disturbance, and anxiety; I10 Essential (primary) hypertension; K76.9 Liver disease, unspecified; K80.20 Calculus of gallbladder without cholecystitis without obstruction; Z88.0 Allergy status to penicillin; Z66 Do not resuscitate; K82.8 Other specified diseases of gallbladder; Z79.82 Long term (current) use of aspirin; Z79.84 Long term (current) use of oral hypoglycemic drugs; K35.201 Acute appendicitis with generalized peritonitis, with perforation, without abscess
CPT/HCPCS: 36415; 71045; 74018; 74177; 80048; 80053; 80061; 81001; 83036; 83605; 83690; 83735; 84100; 84145; 85025; 85730; 93005; 94664; 96365; 97162; 99285; A4217; A4314; A4649; J0744; J1100; J1171; J1580; J1815; J1885; J2270; J2371; J2405; J2543; J2704; J3010; J3475; J3480; J3490; J7030; Q0162; Q9967; A9270; J1836